=== PATIENT | female | born 1940 | race Caucasian/White ===

== ENCOUNTER 2022-06-16 08:58 | Observation (INO) | payer OTHER, SELFPAY ==
[2022-06-16] VITALS (12 sets, daily range): BP systolic 137–216; BP diastolic 68–102; PULSE 54–67; RESP 16–20; TEMP 36.6–36.8; O2SAT 93–99; BMI 22.8; BMI 20.8
--- NOTE | 2022-06-16 09:13 | ED.DIZZY ---
HPI - Dizziness General Time Seen by Provider: 09:24 Date Seen: 06/16/22 Chief Complaint: Dizziness/Vertigo Stated Complaint: Weakness, fluctuating blood pressure Time Seen by Provider: 06/16/22 09:03 Source: patient ( patient is able to tell me she is having no pain right now but has limitations due to her dementia), family ( her sister is present) and RN notes reviewed Mode of arrival: ambulatory Limitations: other ( dementia in the patient) History of Present Illness HPI Narrative: this 81-year-old female who is brought in accompanied by her sister with concern of increasing weakness, unsteadiness. Patient lives [facility] and has a medication set up once a week. Those are only services. Michelle reportedly fell in the bathroom this morning. She states she hit the back of her head but her sister states she complains more of her neck twisting in her left shoulder hurting after this. Right now Michelle states nothing hurts. Her sister notes this morning she seems more weak, disoriented, disorientation is more than her baseline. She had nifedipine started yesterday for better control of her blood pressure. Her sister notes that her pulses lower this morning. She is not had fevers or had any symptoms of being sick. Her sister feels that there has been increasing decline in her abilities to be by herself and does not feel that she can stay alone at this time. Michelle states she is just waiting when you ask if there is any issues right now. She is not feeling dizzy or lightheaded at this time, those complaints are translated by her sister. This patient does have baseline dementia and does have some disorientation per her sister but seems to be worse today. MD elicited complaint: other ( Denies any complaints to me at this time) Onset (ago): hour(s) Related Data Home Medications Medication Instructions Recorded Confirmed benztropine 0.5 mg tablet mg 06/16/22 bupropion HCl 300 mg 24 hr tablet, 300 mg PO DAILY 06/16/22 06/16/22 extended release (Wellbutrin XL) clonazepam 0.5 mg tablet 0.5 mg PO DAILY 06/16/22 06/16/22 lamotrigine 200 mg tablet mg 06/16/22 levothyroxine 50 mcg tablet mcg 06/16/22 losartan 25 mg tablet mg 06/16/22 loxapine succinate 5 mg capsule mg 06/16/22 meclizine 25 mg capsule mg PO 06/16/22 nifedipine 30 mg tablet,extended mg PO 06/16/22 release 24 hr sennosides 8.6 mg-docusate sodium PO 06/16/22 50 mg tablet (Stimulant Laxative Plus) simvastatin 40 mg tablet mg 06/16/22 Allergies Allergy/AdvReac Type Severity Reaction Status Date / Time No Known Drug Allergies Allergy Verified 06/16/22 09:07 Review of Systems Narrative: Patient is basically stating in that there is no pain or issues with anything I ask her. Given her dementia I do not believe I can get a meaningful review of systems from her. Her sister's provided most of the history as noted above in the HPI. [facility] Medical History (Updated 06/16/22 @ 12:25 by Neisha Kothari MD) Alzheimer's dementia without behavioral disturbance Bipolar disorder Chronic kidney disease GERD (gastroesophageal reflux disease) Hyperlipidemia Hypertension Hypothyroidism Osteoporosis Pelvic fracture Primary hyperparathyroidism Renal cell carcinoma of left kidney Type 2 diabetes mellitus Surgical History (Updated 06/16/22 @ 09:17 by Neisha Kothari MD) History of hysterectomy History of nephrectomy, left History of tonsillectomy Social History Smoking Status: Never smoker Do you use any of these nicotine containing products: None Second hand tobacco smoke exposure: No How often do you have a drink containing alcohol: never How often do you have six or more drinks on one occasion: Never AUDIT-C Alcohol total score: 0 Non-prescribed substance use: denies use service: No Exam Const: Vital Signs, click to edit/add: Vital Signs - 24 hr 06/16/22 09:07 06/16/22 09:30 Temperature 97.8 F Pulse Rate [Left P ulse Oximeter] 67 54 L Respiratory Rate 18 16 Blood Pressure [Le ft Upper Arm] 169/87 H 144/74 H Pulse Oximetry 95 94 Documenting provider has reviewed patient's vital signs: yes Common normals: no apparent distress and alert General appearance: cooperative, comfortable and disheveled Nutritional appearance: thin Orientation/consciousness: Yes awake HENMT: Common normals: normocephalic, head/scalp atraumatic, hearing grossly normal bilaterally, external ears normal, external nose normal, oropharynx normal and dentition normal ( does have dentures) Head and scalp: normocephalic and atraumatic Nose: external nose normal External ear: external ears normal Mouth: other ( no traumatic changes but dry mucosa) Eye: Common normals: PERRL, EOMs intact bilaterally, conjunctivae normal and no scleral icterus General eye: normal appearance of both eyes Conjunctiva: conjunctiva(e) normal Pupil: PERRL Other: face atraumatic Neck & C-Spine: Common normals: full ROM, supple, no JVD and thyroid normal Thyroid: thyroid normal Cervical spine: cervical ROM normal and other Cardio: Common normals: no JVD, regular rate, regular rhythm, S1 normal heart sound, S2 normal heart sound, no gallops and no clicks Rate: regular rate Rhythm: regular rhythm Heart sounds: S1 normal and S2 normal GI: Common normals: Normal to inspection, nondistended, normoactive bowel sounds present, soft to palpation, non-tender, no hepatosplenomegaly and no masses Palpation: soft and no hepatosplenomegaly Extremity: Common normals: normal to inspection, full ROM, normal capillary refill, no joint enlargement, no clubbing, cyanosis or edema, no calf tenderness and no pedal edema Neuro: Sensorium/orientation: awake and alert Other: this arms symmetrically, no arm drift, no tremor. Lifts legs independently off the bed. States she has normal sensation. Skin: Common normals: no rashes or lesions noted and no wounds General skin exam: no rashes or lesions noted Course Course Hospital Course: We will obtain head CT, cervical spine CT as well as left shoulder imaging given her sister's presenting history. She has recently had a UTI and was seen in April for this and treated Keflex for pansensitive E coli UTI. Will also get a portable chest x-ray given that this could be atypical presentation of pneumonia in an elderly patient. There is a possible traumatic issue here and thus the CTs will be done. Infectious etiology could be at play here including UTI or possibly COVID and will test for that. It is possible that this is worsening status due to addition of the nifedipine but based on her sister it really does seem like there has been some decline recently. patient may need increased cares and will need to consider that in our disposition. Reevaluation(s) Reevaluation #1: Patient will be admitted to the hospital, likely observation per Dr. Hua. She has been hemodynamically stable, was able to urinate in we did not have to do a straight cath. Her urine on the urinalysis definitely looks like she has an infection and will just treat for UTI. I have ordered 1 g IV Rocephin. Her white count remains similarly elevated [place] [address] an absolute neutrophil count of 13,510. We have ordered a 2nd troponin just to ensure that her troponin is not escalating. It is likely her troponin is up due to her kidney disease. Nonetheless, even if her troponin was starting to rise, her level of dementia really precludes her from being in active candidate for angiography. I have discussed with her sister and she is DNR DNI. She may need assistance from our social media executive to look for placement beyond her current state. Time: 12:14 Vital Signs Vital signs: Initial Vital Signs Temperature 97.8 F 06/16/22 09:07 Temperature Source Temporal Artery Scan 06/16/22 09:07 Pulse Rate 67 06/16/22 09:07 Respiratory Rate 18 06/16/22 09:07 Blood Pressure 169/87 H 06/16/22 09:07 Blood Pressure Mean 114 06/16/22 09:07 Blood Pressure Position Sitting 06/16/22 09:07 Pulse Oximetry 95 06/16/22 09:07 Oxygen Delivery Method 06/16/22 09:07 Vital Signs Temperature 97.8 F 06/16/22 09:07 Pulse Rate 67 06/16/22 09:07 Respiratory Rate 18 06/16/22 09:07 Blood Pressure 169/87 H 06/16/22 09:07 Pulse Oximetry 95 06/16/22 09:07 Temperature 97.8 F 06/16/22 09:07 Pulse Rate 54 L 06/16/22 09:30 Respiratory Rate 16 06/16/22 09:30 Blood Pressure 144/74 H 06/16/22 09:30 Pulse Oximetry 94 06/16/22 09:30 MDM - Dizziness Lab Data Attestation: I reviewed the patient's lab results. Labs: Lab Results 06/16/22 06/16/22 06/16/22 Range/Units 09:53 09:53 09:53 WBC 14.79 H (4.50-11.00) K/uL RBC 4.13 (4.00-5.20) m/uL Hgb 13.0 (12.0-16.0) gm/dL Hct 40.1 (33.0-51.0) % MCV 97 (80-100) fL MCH 32 (26-34) pg MCHC 32 (32-36) gm/dL RDW Coeff of Evelyn 13.5 (11.5-15.5) % Plt Count 224 (140-440) K/uL Neut % (Auto) 84.0 H (42.0-72.0) % Lymph % (Auto) 3.8 L (20-44) % [place] % (Auto) 11.7 H (0.0-11.0) % Eos % (Auto) 0.1 (0.0-7.0) % Baso % (Auto) 0.2 (0.0-3.0) % Neut # (Auto) 12.40 H (1.7-7.0) K/uL Lymph # (Auto) 0.60 L (0.90-2.90) K/uL [place] # (Auto) 1.70 H (0.00-0.90) K/UL Eos # (Auto) 0.00 (0.00-0.50) K/uL Baso # (Auto) 0.00 (0.00-0.30) K/uL Abs Immat Gran (auto) 0.03 (0.00-0.30) K/uL Sodium 138 (135-149) mmol/L Potassium 4.1 (3.6-5.1) mmol/L Chloride 102 (96-114) mmol/L Carbon Dioxide 24 (20-32) mmol/L BUN 45 H (7-30) mg/dL Creatinine 2.4 H (0.5-1.5) mg/dL Estimated Creat Clear 16.14 Estimated GFR 20 ml/min Glucose 125 H (60-115) mg/dL Lactate 0.9 (0.5-1.9) mmol/L Calcium 8.7 (8.4-10.6) mg/dL Total Bilirubin 0.7 (0.1-1.5) mg/dL AST 24 (12-35) U/L ALT 16 (4-35) U/L Alkaline Phosphatase 92 (40-150) U/L Troponin I (0.01-0.04) ng/mL Total Protein 7.3 (6.0-8.3) g/dL Albumin 4.0 (3.3-5.0) g/dL Urine Color (Yellow) Urine Appearance (Clear) Urine pH (5.0-8.5) Ur Specific [place] (1.000-1.030) Urine Protein (Negative) Urine Glucose (UA) (Negative) Urine Ketones (Negative) Urine Blood (Negative) Urine Nitrite (Negative) Urine Bilirubin (Negative) Urine Urobilinogen (0.2-1.0) Ur Leukocyte Esterase (Negative) Urine RBC (0-2) Urine WBC (0-5) Ur Squamous Epith Cells (None-Few) Urine Bacteria (None) SARS-CoV-2 (PCR) (Negative) 06/16/22 06/16/22 06/16/22 Range/Units 09:53 09:53 11:10 WBC (4.50-11.00) K/uL RBC (4.00-5.20) m/uL Hgb (12.0-16.0) gm/dL Hct (33.0-51.0) % MCV (80-100) fL MCH (26-34) pg MCHC (32-36) gm/dL RDW Coeff of Evelyn (11.5-15.5) % Plt Count (140-440) K/uL Neut % (Auto) (42.0-72.0) % Lymph % (Auto) (20-44) % [place] % (Auto) (0.0-11.0) % Eos % (Auto) (0.0-7.0) % Baso % (Auto) (0.0-3.0) % Neut # (Auto) (1.7-7.0) K/uL Lymph # (Auto) (0.90-2.90) K/uL [place] # (Auto) (0.00-0.90) K/UL Eos # (Auto) (0.00-0.50) K/uL Baso # (Auto) (0.00-0.30) K/uL Abs Immat Gran (auto) (0.00-0.30) K/uL Sodium (135-149) mmol/L Potassium (3.6-5.1) mmol/L Chloride (96-114) mmol/L Carbon Dioxide (20-32) mmol/L BUN (7-30) mg/dL Creatinine (0.5-1.5) mg/dL Estimated Creat Clear Estimated GFR ml/min Glucose (60-115) mg/dL Lactate (0.5-1.9) mmol/L Calcium (8.4-10.6) mg/dL Total Bilirubin (0.1-1.5) mg/dL AST (12-35) U/L ALT (4-35) U/L Alkaline Phosphatase (40-150) U/L Troponin I 0.08 H* (0.01-0.04) ng/mL Total Protein (6.0-8.3) g/dL Albumin (3.3-5.0) g/dL Urine Color Yellow (Yellow) Urine Appearance Cloudy A (Clear) Urine pH 7.0 (5.0-8.5) Ur Specific [place] 1.015 (1.000-1.030) Urine Protein 2+ A (Negative) Urine Glucose (UA) Negative (Negative) Urine Ketones Negative (Negative) Urine Blood 2+ A (Negative) Urine Nitrite Positive A (Negative) Urine Bilirubin Negative (Negative) Urine Urobilinogen 0.2 (0.2-1.0) Ur Leukocyte Esterase 3+ A (Negative) Urine RBC 5-10 A (0-2) Urine WBC >100 A (0-5) Ur Squamous Epith Cells None (None-Few) Urine Bacteria Many A (None) SARS-CoV-2 (PCR) Negative SARS-CoV-2 (Negative) Imaging Data CT- Other: Attestation: I have reviewed the pertinent imaging results. Radiologist's impression: Patient: MICHELLE ENNIS Facility:?[facility] Patient ID:?[id number] Site Patient ID:?[id number]. Site :?1940 Study:?CT Spine Cervical -06/16/2022 10:21:46 AM Ordering Physician:Ousmane Driver Final Report: INDICATION: Trauma. TECHNIQUE: CT cervical spine without contrast. COMPARISON: None. FINDINGS: Vertebrae: Alignment is normal. There are no fractures or suspicious bony lesions. Stepwise grade 1 anterolisthesis of C3 through C6. Discs and facet joints: There are advanced degenerative changes in the disc spaces and facet joints. Osseous fusion of the posterior elements at C2-C3. Extraspinal findings: Paraspinous soft tissues are unremarkable. Multilevel moderate to advanced osseous neural foraminal stenosis, for example most notably severe bilaterally at C3-C4, left C5-C6. IMPRESSION: 1. No evidence of acute cervical spine fracture. 2. Advanced degenerative spondylosis. Please note that all CT scans at this facility use dose modulation, iterative reconstruction, and/or weight-based dosing when appropriate to reduce radiation dose to as low as reasonably achievable. Dictated by Romain Mayfield MD @ 06/16/2022 10:43:02 AM (Electronic Signature) CT scan - head: Attestation: I have reviewed the pertinent imaging results. Radiologist's impression: Patient: MICHELLE [facility] Facility:?[facility] Patient ID:?[id number] Site Patient ID:?[id number]. Site :?1940 Study:?CT Head w/o-06/16/2022 10:21:37 AM Ordering Physician:Ousmane Driver Final Report: INDICATION: FALL, VERTIGO, WEAKNESS TECHNIQUE: Head CT without contrast. COMPARISON: 06/28/2014 FINDINGS: CSF spaces: Within normal limits for age. Brain parenchyma and extra-axial spaces: Hypodensity within the left frontal lobe corresponds to beam hardening streak artifact. There are nonspecific low attenuation white matter changes consistent with chronic microvascular disease. No intraparenchymal hemorrhage or extra-axial fluid collection. Skull base and calvarium: The visualized paranasal sinuses and mastoid air cells demonstrate no acute or significant findings. The visualized orbits are grossly unremarkable. No skull fractures. IMPRESSION: Chronic changes without evidence of acute intracranial abnormality. Please note that all CT scans at this facility use dose modulation, iterative reconstruction, and/or weight-based dosing when appropriate to reduce radiation dose to as low as reasonably achievable. Dictated by Romain Mayfield MD @ 06/16/2022 10:48:19 AM (Electronic Signature) X-ray left shoulder: Attestation: I have reviewed the pertinent imaging results. Radiologist's impression: Patient: [facility] Facility:?[facility] Patient ID:?[id number] Site Patient ID:?[id number]. Site :?1940 Study:?CT Head w/o-06/16/2022 10:21:37 AM Ordering Physician:Ousmane Driver Final Report: INDICATION: FALL, VERTIGO, WEAKNESS TECHNIQUE: Head CT without contrast. COMPARISON: 06/28/2014 FINDINGS: CSF spaces: Within normal limits for age. Brain parenchyma and extra-axial spaces: Hypodensity within the left frontal lobe corresponds to beam hardening streak artifact. There are nonspecific low attenuation white matter changes consistent with chronic microvascular disease. No intraparenchymal hemorrhage or extra-axial fluid collection. Skull base and calvarium: The visualized paranasal sinuses and mastoid air cells demonstrate no acute or significant findings. The visualized orbits are grossly unremarkable. No skull fractures. IMPRESSION: Chronic changes without evidence of acute intracranial abnormality. Please note that all CT scans at this facility use dose modulation, iterative reconstruction, and/or weight-based dosing when appropriate to reduce radiation dose to as low as reasonably achievable. Dictated by Romain Mayfield MD @ 06/16/2022 10:48:19 AM (Electronic Signature) Chest x-ray: Attestation: I have reviewed the pertinent imaging results. Radiologist's impression: Patient: MICHELLE ENNIS Facility:?[facility] Patient ID:?[id number] Site Patient ID:?[id number]. Site :?1940 Study:?XRay Chest 1 VIEW-06/16/2022 10:36:37 AM Ordering Physician:?Taye Driver Final Report: INDICATION: Weakness COMPARISON: February 02, 2017 TECHNIQUE: A single view chest radiograph was acquired FINDINGS: TUBES AND LINES: None. HEART AND MEDIASTINUM: Heart mildly enlarged. Tortuous and probably dilated thoracic aorta. The plain film appearance is similar to 2017. LUNGS AND PLEURAL SPACES: Hyperinflated but otherwise unremarkable appearing lungs without acute focal finding.The pleural spaces are unremarkable. OSSEOUS STRUCTURES: Demineralization and degenerative change IMPRESSION: Hyperinflated but otherwise unremarkable appearing lungs without acute focal finding. Enlarged heart. Tortuous and probably dilated thoracic aorta. Similar appearance to the 2017 examination. Dictated by Evan Maria MD @ 06/16/2022 10:58:47 AM (Electronic Signature) ECG Data Attestation: I personally reviewed and interpreted this ECG as follows: (Sinus rhythm, [address] flat depression inferiorly.) ECG interpretation date: 06/16/22 ECG interpretation time: 10:35 Prior ECG tracings: available for review (Changes not seen on prior EKG) Critical Care Time Critical Care Time Critical Care Time: No Discharge Plan Discharge Clinical Impression: Dementia, Weakness, Acute UTI Patient Disposition: Admitted As Inpatient Condition: Stable Prescriptions: No Action nifedipine 30 mg tablet extended release 24 hr PO 0RF benztropine 0.5 mg tablet 0RF lamotrigine 200 mg tablet 0RF sennosides-docusate sodium [Stimulant Laxative Plus] 8.6-50 mg tablet PO 0RF simvastatin 40 mg tablet 0RF loxapine succinate 5 mg capsule 0RF bupropion HCl [Wellbutrin XL] 300 mg tablet extended release 24 hr 300 mg PO DAILY 0RF levothyroxine 50 mcg tablet 0RF losartan 25 mg tablet 0RF clonazepam 0.5 mg tablet 0.5 mg PO DAILY 0RF meclizine 25 mg capsule PO 0RF Follow Up/Referrals: Rajni Lozano DO [Primary Care Provider] -
--- NOTE | 2022-06-16 09:33 | CRLHL7_ITS ---
For Patients: As a result of the Century Cures Act, medical imaging exams and procedure reports are released immediately into your electronic medical record. You may view this report before your referring provider. If you have questions, please contact your health care provider. INDICATION: FALL, VERTIGO, WEAKNESS TECHNIQUE: Head CT without contrast. COMPARISON: 06/28/2014 FINDINGS: CSF spaces: Within normal limits for age. Brain parenchyma and extra-axial spaces: Hypodensity within the left frontal lobe corresponds to beam hardening streak artifact. There are nonspecific low attenuation white matter changes consistent with chronic microvascular disease. No intraparenchymal hemorrhage or extra-axial fluid collection. Skull base and calvarium: The visualized paranasal sinuses and mastoid air cells demonstrate no acute or significant findings. The visualized orbits are grossly unremarkable. No skull fractures. IMPRESSION: Chronic changes without evidence of acute intracranial abnormality. Please note that all CT scans at this facility use dose modulation, iterative reconstruction, and/or weight-based dosing when appropriate to reduce radiation dose to as low as reasonably achievable. Dictated by Romain Mayfield MD @ 06/16/2022 10:48:19 AM (Electronically Signed)
--- NOTE | 2022-06-16 09:36 | CRLHL7_ITS ---
For Patients: As a result of the Century Cures Act, medical imaging exams and procedure reports are released immediately into your electronic medical record. You may view this report before your referring provider. If you have questions, please contact your health care provider. INDICATION: Trauma. TECHNIQUE: CT cervical spine without contrast. COMPARISON: None. FINDINGS: Vertebrae: Alignment is normal. There are no fractures or suspicious bony lesions. Stepwise grade 1 anterolisthesis of C3 through C6. Discs and facet joints: There are advanced degenerative changes in the disc spaces and facet joints. Osseous fusion of the posterior elements at C2-C3. Extraspinal findings: Paraspinous soft tissues are unremarkable. Multilevel moderate to advanced osseous neural foraminal stenosis, for example most notably severe bilaterally at C3-C4, left C5-C6. IMPRESSION: 1. No evidence of acute cervical spine fracture. 2. Advanced degenerative spondylosis. Please note that all CT scans at this facility use dose modulation, iterative reconstruction, and/or weight-based dosing when appropriate to reduce radiation dose to as low as reasonably achievable. Dictated by Romain Mayfield MD @ 06/16/2022 10:43:02 AM (Electronically Signed)
--- NOTE | 2022-06-16 09:36 | CRLHL7_ITS ---
For Patients: As a result of the Century Cures Act, medical imaging exams and procedure reports are released immediately into your electronic medical record. You may view this report before your referring provider. If you have questions, please contact your health care provider. INDICATION: Weakness COMPARISON: February 02, 2017 TECHNIQUE: A single view chest radiograph was acquired FINDINGS: TUBES AND LINES: None. HEART AND MEDIASTINUM: Heart mildly enlarged. Tortuous and probably dilated thoracic aorta. The plain film appearance is similar to 2017. LUNGS AND PLEURAL SPACES: Hyperinflated but otherwise unremarkable appearing lungs without acute focal finding.The pleural spaces are unremarkable. OSSEOUS STRUCTURES: Demineralization and degenerative change IMPRESSION: Hyperinflated but otherwise unremarkable appearing lungs without acute focal finding. Enlarged heart. Tortuous and probably dilated thoracic aorta. Similar appearance to the 2017 examination. Dictated by Evan Maria MD @ 06/16/2022 10:58:47 AM (Electronically Signed)
--- NOTE | 2022-06-16 09:36 | CRLHL7_ITS ---
For Patients: As a result of the Cures Act, medical imaging exams and procedure reports are released immediately into your electronic medical record. You may view this report before your referring provider. If you have questions, please contact your health care provider. Indication: Trauma Technique: None Comparison: Two views of the left shoulder were acquired Findings: Demineralization. No significant arthritic process identified. No visible fracture or dislocation or destructive process. Incidental degenerative changes of the spine and tortuous thoracic aorta. Impression: No visible acute posttraumatic findings involving the left shoulder. Dictated by Evan Maria MD @ 06/16/2022 10:55:34 AM (Electronically Signed)
[2022-06-16 09:59] LABS: Basophils Percent Auto 0.2 % (0.0-3.0); Eosinophils Percent Auto 0.1 % (0.0-7.0); Hematocrit 40.1 % (33.0-51.0); Immature Granulocytes Abs Auto 0.03 K/uL (0.00-0.30); Lymphocytes Percent Auto 3.8 % (20-44); Mean Corpuscular HGB Conc 32 gm/dL (32-36); Mean Corpuscular Hemoglobin 32 pg (26-34); Mean Corpuscular Volume 97 fL (80-100); Monocytes Percent Auto 11.7 % (0.0-11.0); Platelet Count* 224 K/uL (140-440); RDW Coefficient of Variation % 13.5 % (11.5-15.5); Red Blood Count 4.13 m/uL (4.00-5.20); White Blood Count* 14.79 K/uL (4.50-11.00)
[2022-06-16 10:00] LABS: Slide Review Reflex No
[2022-06-16 10:05] LABS: Lactate* 0.9 mmol/L (0.5-1.9)
[2022-06-16 10:47] LABS: Troponin I* 0.08 ng/mL (0.01-0.04)
--- NOTE | 2022-06-16 10:51 | ED.NURSE ---
Critical lab - trop 0.08. Results given to
[2022-06-16 11:14] LABS: SARS PCR* Negative SARS-CoV-2 (Negative)
[2022-06-16 11:16] LABS: Chloride* 102 mmol/L (96-114); Sodium* 138 mmol/L (135-149)
[2022-06-16 11:17] LABS: Potassium* 4.1 mmol/L (3.6-5.1)
[2022-06-16 11:19] LABS: Alkaline Phosphatase* 92 U/L (40-150); Aspartate Amino Transferase* 24 U/L (12-35); Bilirubin Total* 0.7 mg/dL (0.1-1.5); Blood Urea Nitrogen* 45 mg/dL (7-30); Carbon Dioxide* 24 mmol/L (20-32); Creatinine* 2.4 mg/dL (0.5-1.5); Est. Creatinine Clearance* 16.14; Estimated Glomerular Filt Rate 20 ml/min; Total Protein* 7.3 g/dL (6.0-8.3)
[2022-06-16 11:20] LABS: Alanine Aminotransferase* 16 U/L (4-35); Calcium* 8.7 mg/dL (8.4-10.6); Glucose* 125 mg/dL (60-115)
[2022-06-16 11:28] LABS: Appearance Urine Cloudy (Clear); Bilirubin Urine Negative (Negative); Blood Urine 2+ (Negative); Color Urine Yellow (Yellow); Glucose Urine Negative (Negative); Ketones Urine Negative (Negative); Leukocyte Esterase Urine 3+ (Negative); Nitrite Urine Positive (Negative); Protein Urine 2+ (Negative); Specific Gravity Urine 1.015 (1.000-1.030); Urobilinogen Urine 0.2 (0.2-1.0)
[2022-06-16 11:55] LABS: Bacteria Urine Many; WBC Urine >100 (0-5)
[2022-06-16 12:59] LABS: Troponin I* 0.08 ng/mL (0.01-0.04)
[2022-06-16] MEDS: cefTRIAXone 1 GM in 0.9 % SODIUM CHLORIDE Mini-bag 100 ML IVPB (13:03)
--- NOTE | 2022-06-16 13:06 | W.PC.EDHO ---
Primary Language: Malay Preferred Language: Orientation Status: [] Alert & Oriented [] Slight Confusion [X] Known Dx Dementia Transfers By: [X] Assist of 1 [] Assist of 2 [] Lift Active Medications Discontinued Medications Generic Name Dose Route Start Last Admin Trade Name Freq PRN Reason Stop Dose Admin Ceftriaxone Sodium 1 gm/ 100 mls @ 200 mls/hr 06/16/22 12:10 06/16/22 13:03 Sodium Chloride IVPB 06/16/22 12:11 200 mls/hr ONCE ONE Administration Description of Symptoms ED Triage Present Problem per sister, pt was seen at her PMD 2 days ago and Description meds were adjusted for blood pressure. today pt c/o dizziness, low pulse and high BP. pt c/o being tired. Female History Patient No [place] Coma Scale [place] coma scale total score 15 Pain Pain Scale Used Numeric (1 - 10) Pain Scale Used Numeric (1 - 10) Oxygen Administration Pulse Oximetry 94 Pulse Oximetry 95 Oxygen Delivery Method Room Air Oxygen Delivery Method Room Air Cardiac Monitoring EKG Method 12 Lead
--- NOTE | 2022-06-16 13:07 | P.IMHP_ITS ---
Hospitalist- H&P: HPI History of Present Illness Time Seen by Provider: 13:07 Date Seen: 06/16/22 Chief complaint: Weakness, fluctuating blood pressure Narrative: Michelle Markham is a 81 year old female who has been having increased confusion and her apartment at the [facility] in [place]. She has fall in but is not significantly injured. Workup in the emergency room has been unremarkable with the exception of UTI. Patient has underlying cognitive issues which have worsened. Patient's blood pressure is elevated as well. There has been some changes to her blood pressure regiment which is poorly defined at this point. Currently is unclear whether the patient is in the appropriate living environment for her. She has a sister and brother who are excellent caregivers but do not live with her. Review of Systems Status of ROS: Reports: 10 or more systems reviewed and unremarkable except as noted in History and below [facility] Medical History (Updated 06/16/22 @ 12:25 by Neisha Kothari MD) Alzheimer's dementia without behavioral disturbance Bipolar disorder Chronic kidney disease GERD (gastroesophageal reflux disease) Hyperlipidemia Hypertension Hypothyroidism Osteoporosis Pelvic fracture Primary hyperparathyroidism Renal cell carcinoma of left kidney Type 2 diabetes mellitus Surgical History (Updated 06/16/22 @ 09:17 by Neisha Kothari MD) History of hysterectomy History of nephrectomy, left History of tonsillectomy Social History Smoking Status: Never smoker Do you use any of these nicotine containing products: None Second hand tobacco smoke exposure: No How often do you have a drink containing alcohol: never How often do you have six or more drinks on one occasion: Never AUDIT-C Alcohol total score: 0 Non-prescribed substance use: denies use service: No Meds Home Medications and Allergies Home Medications Medication Instructions Recorded Confirmed Type benztropine 0.5 mg tablet mg 06/16/22 History bupropion HCl 300 mg 24 hr tablet, 300 mg PO DAILY 06/16/22 06/16/22 History extended release (Wellbutrin XL) clonazepam 0.5 mg tablet 0.5 mg PO DAILY 06/16/22 06/16/22 History lamotrigine 200 mg tablet mg 06/16/22 History levothyroxine 50 mcg tablet mcg 06/16/22 History losartan 25 mg tablet mg 06/16/22 History loxapine succinate 5 mg capsule mg 06/16/22 History meclizine 25 mg capsule mg PO 06/16/22 History nifedipine 30 mg tablet,extended mg PO 06/16/22 History release 24 hr sennosides 8.6 mg-docusate sodium PO 06/16/22 History 50 mg tablet (Stimulant Laxative Plus) simvastatin 40 mg tablet mg 06/16/22 History Allergies Allergy/AdvReac Type Severity Reaction Status Date / Time No Known Drug Allergies Allergy Verified 06/16/22 09:07 Exam Narrative: Exam Narrative: EXAM GENERAL: Patient appears comfortable and well. EYES: No scleral icterus. LYMPH: No supraclavicular or cervical lymphadenopathy. SKIN: Visible skin seen during exam normal or with benign process only. EXT: No dependent lower extremity pedal edema. HEART: Regular rate and rhythm with no murmurs, rubs, or gallops. LUNGS: Clear to auscultation bilaterally with no crackles or wheezes. ABD: Soft, non tender, non distended. PSYCH: Good eye contact, speech is not pressured. Const: Vital Signs, click to edit/add: Vital Signs - 24 hr 06/16/22 09:07 06/16/22 09:30 Temperature 97.8 F Pulse Rate [Left P ulse Oximeter] 67 54 L Respiratory Rate 18 16 Blood Pressure [Le ft Upper Arm] 169/87 H 144/74 H Pulse Oximetry 95 94 Hospitalist - H&P: Result Labs Labs: Short CBC 06/16/22 Range/Units 09:53 WBC 14.79 H (4.50-11.00) K/uL Hgb 13.0 (12.0-16.0) gm/dL Hct 40.1 (33.0-51.0) % Plt Count 224 (140-440) K/uL BMP 06/16/22 09:53 Sodium 138 Potassium 4.1 Chloride 102 Carbon Dioxide 24 BUN 45 H Creatinine 2.4 H Glucose 125 H Calcium 8.7 Cardiac Enzymes 06/16/22 06/16/22 Range/Units 09:53 12:08 Troponin I 0.08 H* 0.08 H* (0.01-0.04) ng/mL Liver Function 06/16/22 Range/Units 09:53 Total Bilirubin 0.7 (0.1-1.5) mg/dL AST 24 (12-35) U/L ALT 16 (4-35) U/L Alkaline Phosphatase 92 (40-150) U/L Albumin 4.0 (3.3-5.0) g/dL Urine 06/16/22 Range/Units 11:10 Urine Color Yellow (Yellow) Urine Appearance Cloudy A (Clear) Urine pH 7.0 (5.0-8.5) Ur Specific [place] 1.015 (1.000-1.030) Urine Protein 2+ A (Negative) Urine Glucose (UA) Negative (Negative) Assessment and Plan Assessment and plan (1) Dementia: Status: Acute Assessment and Plan: I am not certain if the patient is in her appropriate living environment. Will be treating her urinary tract infection having PT OT consult as well as social insurance adviser. We will review her home medications as well. (2) Weakness: Status: Acute Assessment and Plan: Likely a function of her urinary tract infection underlying dementia. Will treat her UTI and have social insurance analyst help with disposition as well as PT and OT. (3) Acute UTI: Status: Acute Plan Patient received IV Rocephin which we will continue in the short term.
[2022-06-16] MEDS: cloNIDine HCL 0.1 MG TABLET 0.2 MG PO (14:49)
[2022-06-16] MEDS: SENNOSIDES/DOCUSATE TABLET 2 TAB PO (20:39)
[2022-06-16] MEDS: SIMVASTATIN 40 MG TABLET PO (20:40)
[2022-06-16] MEDS: lamoTRIgine 100 MG TABLET 200 MG PO (21:01)
--- NOTE | 2022-06-16 23:39 | PC.NURSE ---
Shift Note [id number]: Pt anxious in hospital setting. Sister Facundo at bedside most of the evening, family presence appears to help pt uneasiness. Receptive to reassurance and explaining cares. Denies pain, but does c/o neck stiffness. Supporting head with pillows has been effective to manage discomfort. Moves well with assist x1, pt does move somewhat impulsively. BP's slightly hypertensive, other VS WNL and LS COA. Pt does have urge incontinence, urine is cloudy and light gurdeep with strong odor. Hot Worker assisted pt with donald care and changed to clean brief at HS.
[2022-06-17 00:43] VITALS: PULSE 61
[2022-06-17 03:44] VITALS: RESP 16
--- NOTE | 2022-06-17 06:26 | PC.NURSE ---
NURSE NOTE 23-: Pt slept throughout night, OK per MD to let pt sleep and do restful night VS. Pt appeared comfortable. Uneventful night.
[2022-06-17 06:52] LABS: Basophils Percent Auto 0.5 % (0.0-3.0); Eosinophils Percent Auto 1.1 % (0.0-7.0); Hematocrit 37.6 % (33.0-51.0); Hemoglobin* 12.3 gm/dL (12.0-16.0); Immature Granulocytes Abs Auto 0.02 K/uL (0.00-0.30); Lymphocytes Percent Auto 6.2 % (20-44); Mean Corpuscular HGB Conc 33 gm/dL (32-36); Mean Corpuscular Hemoglobin 32 pg (26-34); Mean Corpuscular Volume 97 fL (80-100); Monocytes Percent Auto 12.2 % (0.0-11.0); Neutrophils Percent Auto 79.8 % (42.0-72.0); Platelet Count* 213 K/uL (140-440); RDW Coefficient of Variation % 13.4 % (11.5-15.5); Red Blood Count 3.89 m/uL (4.00-5.20); White Blood Count* 11.11 K/uL (4.50-11.00)
[2022-06-17 06:55] LABS: Slide Review Reflex No
[2022-06-17] MEDS: LEVOTHYROXINE 50 MCG TABLET PO (06:55)
[2022-06-17 07:00] VITALS: BP 147/70; PULSE 64; RESP 16; RESP 26; TEMP 37.1; O2SAT 94
[2022-06-17 07:03] LABS: Chloride* 105 mmol/L (96-114); Sodium* 137 mmol/L (135-149)
[2022-06-17 07:04] LABS: Potassium* 4.2 mmol/L (3.6-5.1)
[2022-06-17 07:06] LABS: Carbon Dioxide* 26 mmol/L (20-32); Creatinine* 2.2 mg/dL (0.5-1.5); Est. Creatinine Clearance* 17.61; Estimated Glomerular Filt Rate 22 ml/min
[2022-06-17 07:07] LABS: Blood Urea Nitrogen* 44 mg/dL (7-30); Calcium* 8.3 mg/dL (8.4-10.6); Glucose* 104 mg/dL (60-115)
[2022-06-17 07:21] LABS: Troponin I* 0.06 ng/mL (0.01-0.04)
[2022-06-17] MEDS: SENNOSIDES/DOCUSATE TABLET 2 TAB PO (08:44)
[2022-06-17] MEDS: buPROPion XL 150 MG TABLET 300 MG PO (08:45)
[2022-06-17] MEDS: LOSARTAN POTASSIUM 50 MG TABLET 12.5 MG PO (08:45)
[2022-06-17] MEDS: lamoTRIgine 100 MG TABLET 200 MG PO (09:09)
--- NOTE | 2022-06-17 09:21 | PM.DS1 ---
DS: Providers Provider Time Seen by Provider: : Date Seen: 06/17/22 Date of admission: 06/16/22 13:53 Primary care physician: Rajni Lozano DO Admitting Clinician: Valentin Hua MD Consults: 06/16/22 13:28 Consult to Occupational Therapy [CONS] Urgent Comment: Reason(s) for OT Consult:: Difficulty Managing ADLs Any Restrictions?:: No Restrictions Consult to Office Runner [CONS] Urgent Comment: Reason for Consult:: Social Service Consult 06/16/22 13:29 Consult to Physical Therapy [CONS] Urgent Comment: Reason(s) for PT Consult:: Evaluate Ambulation Any Restrictions?:: No Restrictions 06/16/22 16:18 Consult to Occupational Therapy [CONS] Routine Comment: Reason(s) for OT Consult:: Difficulty Managing ADLs Any Restrictions?:: Unknown Consult to Physical Therapy [CONS] Routine Comment: Reason(s) for PT Consult:: Evaluate and Treat Any Restrictions?:: Unknown Attending Physician on discharge: Valentin Hua MD DS: Diagnosis Discharge Diagnosis (1) Dementia: Status: Acute (2) Weakness: Status: Acute (3) Acute UTI: Status: Acute DS: Summary Hospital Course Hospital Course: Patient is a 81-year-old woman with history of mental health issues and cognitive dysfunction who was admitted with urinary tract infection. She received IV Rocephin. Patient's mental status it remains poor which I do think is more than his explainable via her UTI. This time patient will be transferred to long-term care to continue PT OT as well as additional 5 days of ciprofloxacin 250 mg b.i.d.. She will be seen by PT and OT and will follow-up with her shelter facility physician. Status at Discharge Functional status at discharge: uses cane/walker Overall status at discharge: patient is not back to baseline Time Spent with Patient Time attestation: Total time spent providing and/or coordinating discharge services: Exam Narrative: Exam Narrative: EXAM GENERAL: Patient appears comfortable and well. EYES: No scleral icterus SKIN: Visible skin seen during exam normal or with benign process only. EXT: No dependent lower extremity pedal edema. HEART: Regular rate and rhythm with no murmurs, rubs, or gallops. LUNGS: Clear to auscultation bilaterally with no crackles or wheezes. ABD: Soft, non tender, non distended. PSYCH: Good eye contact, speech is not pressured. Const: Vital Signs, click to edit/add: Vital Signs - 24 hr 06/16/22 09:30 06/16/22 10:30 06/16/22 11:00 Temperature 97.8 F 97.8 F Pulse Rate Pulse Rate [Left A pical] Pulse Rate [Left P ulse Oximeter] 54 L 66 54 L Respiratory Rate 16 16 16 Blood Pressure [Le ft Arm] Blood Pressure [Le ft Upper Arm] 144/74 H 192/89 H 183/93 H Pulse Oximetry 94 99 98 06/16/22 12:00 06/16/22 13:00 06/16/22 13:30 Temperature 97.8 F Pulse Rate Pulse Rate [Left A pical] Pulse Rate [Left P ulse Oximeter] 66 66 66 Respiratory Rate 16 16 16 Blood Pressure [Le ft Arm] Blood Pressure [Le ft Upper Arm] 197/98 H 207/97 H 216/100 H Pulse Oximetry 99 99 99 06/16/22 14:29 06/16/22 15:00 06/16/22 16:13 Temperature 98.1 F 98 F Pulse Rate Pulse Rate [Left A pical] 67 Pulse Rate [Left P ulse Oximeter] Respiratory Rate 18 20 20 Blood Pressure [Le ft Arm] 197/102 H 137/68 Blood Pressure [Le ft Upper Arm] Pulse Oximetry 98 95 95 06/16/22 19:00 06/16/22 23:00 06/17/22 00:43 Temperature 98.2 F Pulse Rate 61 Pulse Rate [Left A pical] 62 Pulse Rate [Left P ulse Oximeter] Respiratory Rate 18 16 Blood Pressure [Le ft Arm] 145/74 H Blood Pressure [Le ft Upper Arm] Pulse Oximetry 93 06/17/22 03:44 Temperature Pulse Rate Pulse Rate [Left A pical] Pulse Rate [Left P ulse Oximeter] Respiratory Rate 16 Blood Pressure [Le ft Arm] Blood Pressure [Le ft Upper Arm] Pulse Oximetry DS: Data Data Completed and Pending Labs on day of discharge: Labs from last 24 hours 06/17/22 06/17/22 06/16/22 06:36 06:36 12:08 WBC 11.11 H RBC 3.89 L Hgb 12.3 Hct 37.6 MCV 97 MCH 32 MCHC 33 RDW Coeff of Evelyn 13.4 Plt Count 213 Neut % (Auto) 79.8 H Lymph % (Auto) 6.2 L [place] % (Auto) 12.2 H Eos % (Auto) 1.1 Baso % (Auto) 0.5 Neut # (Auto) 8.90 H Lymph # (Auto) 0.70 L [place] # (Auto) 1.40 H Eos # (Auto) 0.10 Baso # (Auto) 0.10 Abs Immat Gran (auto) 0.02 Sodium 137 Potassium 4.2 Chloride 105 Carbon Dioxide 26 BUN 44 H Creatinine 2.2 H Estimated Creat Clear 17.61 Estimated GFR 22 Glucose 104 Lactate Calcium 8.3 L Total Bilirubin AST ALT Alkaline Phosphatase Troponin I 0.06 H* 0.08 H* Total Protein Albumin Urine Color Urine Appearance Urine pH Ur Specific [place] Urine Protein Urine Glucose (UA) Urine Ketones Urine Blood Urine Nitrite Urine Bilirubin Urine Urobilinogen Ur Leukocyte Esterase Urine RBC Urine WBC Ur Squamous Epith Cells Urine Bacteria SARS-CoV-2 (PCR) 06/16/22 06/16/22 06/16/22 11:10 09:53 09:53 WBC RBC Hgb Hct MCV MCH MCHC RDW Coeff of Evelyn Plt Count Neut % (Auto) Lymph % (Auto) [place] % (Auto) Eos % (Auto) Baso % (Auto) Neut # (Auto) Lymph # (Auto) [place] # (Auto) Eos # (Auto) Baso # (Auto) Abs Immat Gran (auto) Sodium Potassium Chloride Carbon Dioxide BUN Creatinine Estimated Creat Clear Estimated GFR Glucose Lactate Calcium Total Bilirubin AST ALT Alkaline Phosphatase Troponin I 0.08 H* Total Protein Albumin Urine Color Yellow Urine Appearance Cloudy A Urine pH 7.0 Ur Specific [place] 1.015 Urine Protein 2+ A Urine Glucose (UA) Negative Urine Ketones Negative Urine Blood 2+ A Urine Nitrite Positive A Urine Bilirubin Negative Urine Urobilinogen 0.2 Ur Leukocyte Esterase 3+ A Urine RBC 5-10 A Urine WBC >100 A Ur Squamous Epith Cells None Urine Bacteria Many A SARS-CoV-2 (PCR) Negative SARS-CoV-2 06/16/22 06/16/22 06/16/22 09:53 09:53 09:53 WBC 14.79 H RBC 4.13 Hgb 13.0 Hct 40.1 MCV 97 MCH 32 MCHC 32 RDW Coeff of Evelyn 13.5 Plt Count 224 Neut % (Auto) 84.0 H Lymph % (Auto) 3.8 L [place] % (Auto) 11.7 H Eos % (Auto) 0.1 Baso % (Auto) 0.2 Neut # (Auto) 12.40 H Lymph # (Auto) 0.60 L [place] # (Auto) 1.70 H Eos # (Auto) 0.00 Baso # (Auto) 0.00 Abs Immat Gran (auto) 0.03 Sodium 138 Potassium 4.1 Chloride 102 Carbon Dioxide 24 BUN 45 H Creatinine 2.4 H Estimated Creat Clear 16.14 Estimated GFR 20 Glucose 125 H Lactate 0.9 Calcium 8.7 Total Bilirubin 0.7 AST 24 ALT 16 Alkaline Phosphatase 92 Troponin I Total Protein 7.3 Albumin 4.0 Urine Color Urine Appearance Urine pH Ur Specific [place] Urine Protein Urine Glucose (UA) Urine Ketones Urine Blood Urine Nitrite Urine Bilirubin Urine Urobilinogen Ur Leukocyte Esterase Urine RBC Urine WBC Ur Squamous Epith Cells Urine Bacteria SARS-CoV-2 (PCR) Discharge Plan Discharge Disposition: [facility] Date of Admission: 06/16/22 13:53 Attending Provider on Discharge: Valentin Hua Primary Care Provider: Rajni Lozano Condition: Stable Discharge Medications: New ciprofloxacin HCl [Cipro] 250 mg tablet 250 mg PO BID Qty: 10 0RF Continued benztropine 0.5 mg tablet 0.5 mg PO DAILY 0RF lamotrigine 200 mg tablet 200 mg PO Q12H 0RF sennosides-docusate sodium [Stimulant Laxative Plus] 8.6-50 mg tablet 2 tab-cap PO BID 0RF simvastatin 40 mg tablet 40 mg PO HS 0RF loxapine succinate 5 mg capsule 5 mg PO HS 0RF bupropion HCl [Wellbutrin XL] 300 mg tablet extended release 24 hr 300 mg PO DAILY 0RF levothyroxine 50 mcg tablet 50 mcg PO DAILY 0RF losartan 25 mg tablet 12.5 mg PO DAILY 0RF amlodipine 2.5 mg tablet 2.5 mg PO DAILY 0RF rosuvastatin 10 mg tablet 10 mg PO HS 0RF Hold Instructions: NOT ON [facility] LIST 06/16/22 cinacalcet 30 mg tablet 30 mg PO DAILY 0RF cholecalciferol (vitamin D3) 25 mcg (1,000 unit) tablet 1,000 unit PO DAILY 0RF multivitamin with folic acid [Tab-A-Alka] 400 mcg tablet 1 tab PO DAILY 0RF Discharge Orders: Discharge Order (Routine); Ordered 06/17/22 Ordered By: Valentin Hua Activity Level: No Restrictions Activity Detail: PT OT to see Discharge Diet: Regular Follow Up Appointments: Rajni Lozano DO [Primary Care Provider] -
--- NOTE | 2022-06-17 09:56 | PC.NURSE ---
Dr. Hua aware of Trop 0.06 as a decrease in the lab.
[2022-06-17 11:00] VITALS: BP 166/80; PULSE 63; RESP 26; TEMP 36.6; O2SAT 96
--- NOTE | 2022-06-17 11:23 | PC.SOCIAL ---
Discharge plan: Received call back from [facility] stating they can accept pt for admit to the [facility] at 1:00 today. Met with pt and sister, Facundo, who are aware and agree with this plan. color drum worker to follow up as needed.
[2022-06-17] MEDS: cefTRIAXone 1 GM in 0.9 % SODIUM CHLORIDE Mini-bag 100 ML IVPB (12:26)
--- NOTE | 2022-06-17 13:07 | PC.NURSE ---
Discharge: Patient pleasant and cooperative. Patient alert and oriented to only self. Patient vitally stable, lungs clear, BS WNL, IV removed, catheter intact. Patient denied pain. Patient is 1 assist, walker, gb when ambulating. Patient's Sister who is POA, signed belongings sheet and discharge form. Patient left the floor by wheelchair to [facility], through transportation provided from [facility] van, at [phone]. Patient's sister took belongings and will meeting patient at [facility].
== END 2022-06-17 13:02 ==
LOC: ED 12:25 → MEDSURG 13:56
PROVIDERS: Admitting Provider Internal Medicine; Emergency Provider Family Medicine; PCP Family Medicine; Visit Provider Internal Medicine
DX: N39.0 Urinary tract infection, site not specified (principal); F03.90 Unspecified dementia, unspecified severity, without behavioral disturbance, psychotic disturbance, mood disturbance, and anxiety; R53.1 Weakness; I10 Essential (primary) hypertension; D72.829 Elevated white blood cell count, unspecified; Z86.59 Personal history of other mental and behavioral disorders; R26.81 Unsteadiness on feet; Z90.710 Acquired absence of both cervix and uterus; Z90.5 Acquired absence of kidney; Z66 Do not resuscitate; E78.5 Hyperlipidemia, unspecified; W19.XXXA Unspecified fall, initial encounter
CPT/HCPCS: 36415; 70450; 71045; 72125; 73030; 80048; 80053; 81001; 83605; 84484; 85025; 87086; 87186; 87635; 93005; 96365; 96375; 97110; 97116; 97161; 97165; 99284; 99285; A9270; G0378; G0379; J0696

== ENCOUNTER 2022-07-06 08:12 | Outpatient (CLI) | payer OTHER, SELFPAY | END 2022-07-06 08:13 | disposition home or self-care (01) | LOC: AMB 07-18 12:19 | PROVIDERS: PCP Family Medicine; Visit Provider Family Medicine | DX: S19.9XXA Unspecified injury of neck, initial encounter (principal); S79.912A Unspecified injury of left hip, initial encounter; W19.XXXA Unspecified fall, initial encounter; Y92.091 Bathroom in other non-institutional residence as the place of occurrence of the external cause | CPT/HCPCS: A0425; A0427 ==

== ENCOUNTER 2022-07-06 08:36 | Inpatient (IN) | payer OTHER, SELFPAY ==
[2022-07-06] VITALS (11 sets, daily range): BP systolic 127–230; BP diastolic 77–109; PULSE 53–72; RESP 17–22; TEMP 36.1–37.7; O2SAT 88–98; BMI 21.3
[2022-07-06] MEDS: ONDANSETRON 2 MG/ML inj 4 MG IVP (08:42)
--- NOTE | 2022-07-06 08:42 | CRLHL7_ITS ---
For Patients: As a result of the Century Cures Act, medical imaging exams and procedure reports are released immediately into your electronic medical record. You may view this report before your referring provider. If you have questions, please contact your health care provider. INDICATION: Fall. TECHNIQUE: Head CT without contrast. Coronal and sagittal reformats were generated. COMPARISON: CT head from 06/16/2022. FINDINGS: CSF spaces: Within normal limits for age. Brain parenchyma and extra-axial spaces: Nonspecific low attenuation white matter changes consistent with chronic microvascular disease. No sign of mass, hemorrhage, or midline shift. Skull base and calvarium: The visualized paranasal sinuses and mastoid air cells demonstrate no acute or significant findings. The visualized orbits are grossly unremarkable. No skull fractures. Soft tissues: Mild soft tissue swelling along the left lateral parietal scalp, with a small subgaleal hematoma. No subcutaneous emphysema. IMPRESSION: No acute intracranial abnormality. Please note that all CT scans at this facility use dose modulation, iterative reconstruction, and/or weight-based dosing when appropriate to reduce radiation dose to as low as reasonably achievable. Dictated by Lionel Pina MD @ 07/06/2022 9:57:36 AM (Electronically Signed)
--- NOTE | 2022-07-06 08:42 | CRLHL7_ITS ---
For Patients: As a result of the Century Cures Act, medical imaging exams and procedure reports are released immediately into your electronic medical record. You may view this report before your referring provider. If you have questions, please contact your health care provider. INDICATION: Fall. TECHNIQUE: CT cervical spine without contrast. Coronal and sagittal reformats were generated. COMPARISON: None. FINDINGS: Limited by patient motion and incomplete inclusion of the C7 vertebral body. : Vertebrae: Alignment is normal. No fractures or suspicious bony lesions. Discs and facet joints: Multilevel degenerative changes include disc space narrowing, subchondral sclerosis, and marginal osteophyte formation. Osteoarthritic changes involve the apophyseal joints of the cervical spine. Extraspinal findings: Prevertebral soft tissues, visualized airway, and visualized lungs are unremarkable. IMPRESSION: Multilevel degenerative changes. No acute abnormality in the included cervical spine. Please note that all CT scans at this facility use dose modulation, iterative reconstruction, and/or weight-based dosing when appropriate to reduce radiation dose to as low as reasonably achievable. Dictated by Lionel Pina MD @ 07/06/2022 9:48:21 AM (Electronically Signed)
--- NOTE | 2022-07-06 08:42 | CRLHL7_ITS ---
For Patients: As a result of the Cures Act, medical imaging exams and procedure reports are released immediately into your electronic medical record. You may view this report before your referring provider. If you have questions, please contact your health care provider. INDICATION: Fall. TECHNIQUE: Pelvis and left hip, 3 views. COMPARISON: Pelvis and left hip radiographs from 02/16/2018. FINDINGS: Bones: Shortening of the left femoral neck with subtle lucency inferior to the femoral head. Old healed fracture of the right inferior pubic ramus. Joint spaces: Joint spaces are preserved. No degenerative changes. Soft tissues: Unremarkable. IMPRESSION: Impacted left femoral neck fracture. Dictated by Lionel Pina MD @ 07/06/2022 9:38:33 AM (Electronically Signed)
[2022-07-06] MEDS: MORPHINE 4 MG/ML INJ IVP (08:43)
--- NOTE | 2022-07-06 08:48 | ED_ITS ---
HPI - General Adult General Time Seen by Provider: 08:48 Date Seen: 07/06/22 Chief complaint: Fall/Minor Trauma Stated complaint: FALL Time Seen by Provider: 07/06/22 08:42 Source: patient Mode of arrival: EMS Limitations: no limitations History of Present Illness HPI narrative: Patient is an 81 year white female patient of a long-term care facility who apparently fell today, staff was trying to get her dressed they left briefly and they found her on the floor. She complains of pain in her neck and her left hip. She apparently denied loss of consciousness. Denies chest pain, simply lost balance. [place] paramedics report no focal neurologic weakness, that she is alert and awake. She has a mild tremor and some chronic communication difficulties. No other specific complaints. No recent illness. Related Data Home Medications Medication Instructions Recorded Confirmed amlodipine 2.5 mg tablet 2.5 mg PO DAILY 06/16/22 07/06/22 benztropine 0.5 mg tablet 0.5 mg PO DAILY 06/16/22 07/06/22 bupropion HCl 300 mg 24 hr tablet, 300 mg PO DAILY 06/16/22 07/06/22 extended release (Wellbutrin XL) cinacalcet 30 mg tablet 30 mg PO DAILY 06/16/22 07/06/22 lamotrigine 200 mg tablet 200 mg PO BID 06/16/22 07/06/22 levothyroxine 50 mcg tablet 50 mcg PO DAILY 06/16/22 07/06/22 losartan 25 mg tablet 12.5 mg PO DAILY 06/16/22 07/06/22 loxapine succinate 5 mg capsule 5 mg PO HS 06/16/22 07/06/22 sennosides 8.6 mg-docusate sodium 2 tab PO BID 06/16/22 07/06/22 50 mg tablet (Stimulant Laxative Plus) simvastatin 20 mg tablet 20 mg PO DAILY 07/06/22 07/06/22 Allergies Allergy/AdvReac Type Severity Reaction Status Date / Time No Known Drug Allergies Allergy Verified 06/16/22 09:07 Review of Systems Status of ROS: Reports: 6 or more systems reviewed and unremarkable except as noted in History and below [facility] Medical History (Updated 07/06/22 @ 12:46 by Carlos Newsome MD) Alzheimer's dementia without behavioral disturbance Bipolar disorder Chronic kidney disease Fracture of femoral neck, left GERD (gastroesophageal reflux disease) Hyperlipidemia Hypertension Hypothyroidism Osteoporosis Pelvic fracture Primary hyperparathyroidism Recurrent falls Renal cell carcinoma of left kidney Tardive dyskinesia Type 2 diabetes mellitus Surgical History History of hysterectomy History of nephrectomy, left History of tonsillectomy Family History (Updated 07/06/22 @ 12:40 by Carlos Newsome MD) Father High blood pressure Mother High blood pressure Social History Highest level of school completed/degree received: some college, no degree Smoking Status: Never smoker Do you use any of these nicotine containing products: None Second hand tobacco smoke exposure: No How often do you have a drink containing alcohol: never How often do you have six or more drinks on one occasion: Never AUDIT-C Alcohol total score: 0 Non-prescribed substance use: denies use Caffeine: No service: No Exam Narrative: Exam Narrative: Objective: Primary survey reveals no airway breathing circulatory or disability other than her left hip she complains of pain Secondary survey HEENT is unremarkable, neck she reports midline tenderness in the back of the neck she is in a C-collar this was not removed Chest back abdomen unremarkable to palpation lungs are clear, heart rhythm regular without murmur Abdomen benign soft Pelvis stable left hip shows pain with flexion extension pain with internal external rotation over the lateral hip Extremities good perfusion, just slight external rotation to the left lower extremity, but there is little bit to the right lower extremity as well. No open wounds, skin is intact Skin is warm and dry Const: Vital Signs, click to edit/add: Vital Signs - 24 hr 07/06/22 08:40 Temperature 96.9 F L Pulse Rate [Right Pulse Oximeter] 68 Respiratory Rate 18 Blood Pressure [Ri ght Upper Arm] 230/109 H Pulse Oximetry 93 Oxygen Delivery Me thod Room Air Course Course Hospital Course: Patient will get an IV cardiac monitoring, laboratory studies, x-rays of her left hip and pelvis, CT scan of her head neck Vital Signs Vital signs: Initial Vital Signs Temperature 96.9 F L 07/06/22 08:40 Temperature Source Temporal Artery Scan 07/06/22 08:40 Pulse Rate 68 07/06/22 08:40 Respiratory Rate 18 07/06/22 08:40 Blood Pressure 230/109 H 07/06/22 08:40 Blood Pressure Mean 149 07/06/22 08:40 Blood Pressure Position Sitting 07/06/22 08:40 Pulse Oximetry 93 07/06/22 08:40 Oxygen Delivery Method 07/06/22 08:40 Vital Signs Temperature 96.9 F L 07/06/22 08:40 Pulse Rate 68 07/06/22 08:40 Respiratory Rate 18 07/06/22 08:40 Blood Pressure 230/109 H 07/06/22 08:40 Pulse Oximetry 93 07/06/22 08:40 Oxygen Delivery Method 07/06/22 08:40 Temperature 98.9 F 07/06/22 14:09 Pulse Rate 71 07/06/22 14:09 Respiratory Rate 18 07/06/22 14:09 Blood Pressure 230/109 H 07/06/22 08:40 Pulse Oximetry 93 07/06/22 14:09 Oxygen Delivery Method 07/06/22 14:09 Oxygen Flow Rate 2 07/06/22 14:09 Medical Decision Making [facility] Narrative Medical decision making narrative: Patient has complicated chronic illnesses, she fell, complains of neck pain and left hip pain. Rule out neck injury, head injury, rhythm disturbance, electrolyte imbalance, hip fracture. Addendum: By my review the patient has an impacted left femoral neck fracture of her hip, Radiology confirms. By my read her EKG shows normal sinus rhythm biatrial enlargement LVH artifact. Have placed a Johnson catheter, will get laboratory studies. Patient will need admission for treatment of her hip fracture. The patient's head and neck CT scan read as chronic degenerative changes but no acute findings. Lab Data Labs: Lab Results 07/06/22 07/06/22 07/06/22 Range/Units 08:42 08:42 08:42 WBC 6.98 (4.50-11.00) K/uL RBC 4.29 (4.00-5.20) m/uL Hgb 13.3 (12.0-16.0) gm/dL Hct 41.7 (33.0-51.0) % MCV 97 (80-100) fL MCH 31 (26-34) pg MCHC 32 (32-36) gm/dL RDW Coeff of Evelyn 13.4 (11.5-15.5) % Plt Count 284 (140-440) K/uL Neut % (Auto) 75.7 H (42.0-72.0) % Lymph % (Auto) 11.3 L (20-44) % Dickson % (Auto) 10.0 (0.0-11.0) % Eos % (Auto) 2.0 (0.0-7.0) % Baso % (Auto) 0.6 (0.0-3.0) % Neut # (Auto) 5.30 (1.7-7.0) K/uL Lymph # (Auto) 0.80 L (0.90-2.90) K/uL Dickson # (Auto) 0.70 (0.00-0.90) K/UL Eos # (Auto) 0.14 (0.00-0.50) K/uL Baso # (Auto) 0.04 (0.00-0.30) K/uL Abs Immat Gran (auto) 0.03 (0.00-0.30) K/uL INR 0.97 (0.91-1.10) APTT 34 H (23-33) Seconds Sodium 140 (135-149) mmol/L Potassium 4.3 (3.6-5.1) mmol/L Chloride 104 (96-114) mmol/L Carbon Dioxide 26 (20-32) mmol/L BUN 46 H (7-30) mg/dL Creatinine 2.2 H (0.5-1.5) mg/dL Estimated Creat Clear 17.61 Estimated GFR 22 ml/min Glucose 103 (60-115) mg/dL Calcium 9.0 (8.4-10.6) mg/dL Total Bilirubin 0.6 (0.1-1.5) mg/dL Direct Bilirubin 0.3 (0.0-0.5) mg/dL AST 32 (12-35) U/L ALT 26 (4-35) U/L Alkaline Phosphatase 117 (40-150) U/L NT-Pro-B Natriuret Pep 2940 H (0-450) PG/mL Total Protein 7.4 (6.0-8.3) g/dL Albumin 4.1 (3.3-5.0) g/dL SARS-CoV-2 (PCR) (Negative) 07/06/22 Range/Units 09:25 WBC (4.50-11.00) K/uL RBC (4.00-5.20) m/uL Hgb (12.0-16.0) gm/dL Hct (33.0-51.0) % MCV (80-100) fL MCH (26-34) pg MCHC (32-36) gm/dL RDW Coeff of Evelyn (11.5-15.5) % Plt Count (140-440) K/uL Neut % (Auto) (42.0-72.0) % Lymph % (Auto) (20-44) % Dickson % (Auto) (0.0-11.0) % Eos % (Auto) (0.0-7.0) % Baso % (Auto) (0.0-3.0) % Neut # (Auto) (1.7-7.0) K/uL Lymph # (Auto) (0.90-2.90) K/uL Dickson # (Auto) (0.00-0.90) K/UL Eos # (Auto) (0.00-0.50) K/uL Baso # (Auto) (0.00-0.30) K/uL Abs Immat Gran (auto) (0.00-0.30) K/uL INR (0.91-1.10) APTT (23-33) Seconds Sodium (135-149) mmol/L Potassium (3.6-5.1) mmol/L Chloride (96-114) mmol/L Carbon Dioxide (20-32) mmol/L BUN (7-30) mg/dL Creatinine (0.5-1.5) mg/dL Estimated Creat Clear Estimated GFR ml/min Glucose (60-115) mg/dL Calcium (8.4-10.6) mg/dL Total Bilirubin (0.1-1.5) mg/dL Direct Bilirubin (0.0-0.5) mg/dL AST (12-35) U/L ALT (4-35) U/L Alkaline Phosphatase (40-150) U/L NT-Pro-B Natriuret Pep (0-450) PG/mL Total Protein (6.0-8.3) g/dL Albumin (3.3-5.0) g/dL SARS-CoV-2 (PCR) Negative SARS-CoV-2 (Negative) Discharge Plan Discharge Clinical Impression: Acute hip pain, Dementia, Weakness, Fall Discharge Location: [facility] Prescriptions: No Action benztropine 0.5 mg tablet 0.5 mg PO DAILY lamotrigine 200 mg tablet 200 mg PO BID sennosides-docusate sodium [Stimulant Laxative Plus] 8.6-50 mg tablet 2 tab PO BID loxapine succinate 5 mg capsule 5 mg PO HS bupropion HCl [Wellbutrin XL] 300 mg tablet extended release 24 hr 300 mg PO DAILY levothyroxine 50 mcg tablet 50 mcg PO DAILY losartan 25 mg tablet 12.5 mg PO DAILY amlodipine 2.5 mg tablet 2.5 mg PO DAILY cinacalcet 30 mg tablet 30 mg PO DAILY simvastatin 20 mg tablet 20 mg PO DAILY Follow Up/Referrals: Rajni Lzoano DO [Primary Care Provider] -
--- NOTE | 2022-07-06 09:10 | ED.NURSE ---
0900-Report received from REYNALDO Honeycutt. Pt at imaging at this time.
[2022-07-06 10:11] LABS: Basophils Absolute Auto 0.04 K/uL (0.00-0.30); Basophils Percent Auto 0.6 % (0.0-3.0); Eosinophils Absolute Auto 0.14 K/uL (0.00-0.50); Hematocrit 41.7 % (33.0-51.0); Hemoglobin* 13.3 gm/dL (12.0-16.0); Immature Granulocytes Abs Auto 0.03 K/uL (0.00-0.30); Lymphocytes Percent Auto 11.3 % (20-44); Mean Corpuscular HGB Conc 32 gm/dL (32-36); Mean Corpuscular Hemoglobin 31 pg (26-34); Mean Corpuscular Volume 97 fL (80-100); Neutrophils Percent Auto 75.7 % (42.0-72.0); Platelet Count* 284 K/uL (140-440); RDW Coefficient of Variation % 13.4 % (11.5-15.5); Red Blood Count 4.29 m/uL (4.00-5.20); White Blood Count* 6.98 K/uL (4.50-11.00)
[2022-07-06 10:13] LABS: Albumin* 4.1 g/dL (3.3-5.0)
[2022-07-06 10:14] LABS: Chloride* 104 mmol/L (96-114); Potassium* 4.3 mmol/L (3.6-5.1); Sodium* 140 mmol/L (135-149)
[2022-07-06 10:16] LABS: Alkaline Phosphatase* 117 U/L (40-150); Aspartate Amino Transferase* 32 U/L (12-35); Bilirubin Direct* 0.3 mg/dL (0.0-0.5); Bilirubin Total* 0.6 mg/dL (0.1-1.5); Blood Urea Nitrogen* 46 mg/dL (7-30); Carbon Dioxide* 26 mmol/L (20-32); Creatinine* 2.2 mg/dL (0.5-1.5); Est. Creatinine Clearance* 17.61; Estimated Glomerular Filt Rate 22 ml/min; Total Protein* 7.4 g/dL (6.0-8.3)
[2022-07-06 10:17] LABS: Alanine Aminotransferase* 26 U/L (4-35); Glucose* 103 mg/dL (60-115); Slide Review Reflex No
[2022-07-06] MEDS: 0.9 % SODIUM CHLORIDE 500 ML 500 ML IV (10:18)
[2022-07-06 10:26] LABS: NT Pro B Type NatriureticPept* 2940 PG/mL (0-450)
[2022-07-06 10:27] LABS: INR 0.97 (0.91-1.10); Prothrombin Time 13.3 Seconds
[2022-07-06 10:28] LABS: Partial Thromboplastin Time* 34 Seconds (23-33)
[2022-07-06 10:34] LABS: SARS PCR* Negative SARS-CoV-2 (Negative)
--- NOTE | 2022-07-06 12:30 | CRLHL7_ITS ---
For Patients: As a result of the Century Cures Act, medical imaging exams and procedure reports are released immediately into your electronic medical record. You may view this report before your referring provider. If you have questions, please contact your health care provider. INDICATION: Fall TECHNIQUE: Chest 1 view. COMPARISON: 05/27/22 FINDINGS: Cardiovascular and mediastinum: Heart size and vasculature are normal in caliber and appearance. Mediastinum is within normal limits. Lungs and pleural space: Lungs are clear. No sign of infiltrate or mass. No sign of pleural effusion. No pneumothorax. Bones and soft tissues: No significant findings. IMPRESSION: Unremarkable chest. Dictated by: Alberto Lincoln MD @ 07/06/2022 13:30:21 (Electronically Signed)
--- NOTE | 2022-07-06 12:36 | PM.IMHP1 ---
Hospitalist- H&P: HPI History of Present Illness Date Seen: 07/06/22 Chief complaint: FALL Narrative: Michelle Markham is a 81 year old female admitted through the emergency department after a fall at home. Staff were helping her to get dressed today. They briefly left her and they found her laying on the floor. She was complaining of left hip pain and neck pain. In the emergency department she was evaluated and found to have an impacted femoral neck fracture. No significant head injury or injury to her C-spine identified on imaging. She has not had any focal neurologic deficits identified. Patient is quite frail and has a history of falls. She was hospitalized here June 16 and after a series of falls at home as well. No obvious serious injury or illness was identified at that time though she was identified with a urinary tract infection with pansensitive E coli. She was treated with Cipro. Review of Systems Narrative: Patient has dementia and is unable to give much history. She does acknowledge some hip pain. She also reports being thirsty and having a dry mouth. Otherwise denies any symptoms of illness or other injury when I am speaking to her today [facility] Medical History (Updated 07/06/22 @ 12:46 by Carlos Newsome MD) Alzheimer's dementia without behavioral disturbance Bipolar disorder Chronic kidney disease Fracture of femoral neck, left GERD (gastroesophageal reflux disease) Hyperlipidemia Hypertension Hypothyroidism Osteoporosis Pelvic fracture Primary hyperparathyroidism Recurrent falls Renal cell carcinoma of left kidney Tardive dyskinesia Type 2 diabetes mellitus Surgical History History of hysterectomy History of nephrectomy, left History of tonsillectomy Family History (Updated 07/06/22 @ 12:40 by Carlos Newsome MD) Father High blood pressure Mother High blood pressure Social History Highest level of school completed/degree received: some college, no degree Smoking Status: Never smoker Do you use any of these nicotine containing products: None Second hand tobacco smoke exposure: No How often do you have a drink containing alcohol: never How often do you have six or more drinks on one occasion: Never AUDIT-C Alcohol total score: 0 Non-prescribed substance use: denies use Caffeine: No service: No Meds Home Medications and Allergies Home Medications Medication Instructions Recorded Confirmed Type amlodipine 2.5 mg tablet 2.5 mg PO DAILY 06/16/22 07/06/22 History benztropine 0.5 mg tablet 0.5 mg PO DAILY 06/16/22 07/06/22 History bupropion HCl 300 mg 24 hr tablet, 300 mg PO DAILY 06/16/22 07/06/22 History extended release (Wellbutrin XL) cinacalcet 30 mg tablet 30 mg PO DAILY 06/16/22 07/06/22 History lamotrigine 200 mg tablet 200 mg PO BID 06/16/22 07/06/22 History levothyroxine 50 mcg tablet 50 mcg PO DAILY 06/16/22 07/06/22 History losartan 25 mg tablet 12.5 mg PO DAILY 06/16/22 07/06/22 History loxapine succinate 5 mg capsule 5 mg PO HS 06/16/22 07/06/22 History sennosides 8.6 mg-docusate sodium 2 tab PO BID 06/16/22 07/06/22 History 50 mg tablet (Stimulant Laxative Plus) simvastatin 20 mg tablet 20 mg PO DAILY 07/06/22 07/06/22 History Allergies Allergy/AdvReac Type Severity Reaction Status Date / Time No Known Drug Allergies Allergy Verified 06/16/22 09:07 Exam Narrative: Exam Narrative: She is awake and lying on the gurney. She appears in no obvious distress. She is oriented to being in the hospital. She cannot tell me the circumstances of foot brought her to the hospital today. She does report a dry mouth and pain in the area of her left hip. Otherwise unable to give me much history of recent events or health status. Head is without obvious trauma. Pupils are equal round reactive to light. Cataracts are present. Extraocular movements are full. Oropharynx with dry mucous membranes. She has an upper denture plate no lower teeth. Mucous membranes are dry. Neck is supple without mass or adenopathy. Respirations are clear to auscultation without wheezing, rales, rhonchi. Cardiovascular: S1, S2, regular rate and rhythm. No murmur gallop or rub. Abdomen: Bowel sounds active. Abdomen is soft without tenderness or mass. She has tenderness with palpation around her left hip. No obvious deformity, abnormal rotation or shortening of her left lower extremity. She is unable to move her left hip secondary to pain. She moves her feet and ankles bilaterally well. She has intact pulses. Intact sensation. No edema. Const: Vital Signs, click to edit/add: Vital Signs - 24 hr 07/06/22 08:40 Temperature 96.9 F L Pulse Rate [Right Pulse Oximeter] 68 Respiratory Rate 18 Blood Pressure [Ri ght Upper Arm] 230/109 H Pulse Oximetry 93 Oxygen Delivery Me thod Room Air Documenting provider has reviewed patient's vital signs: yes Hospitalist - H&P: Result Labs Labs: Short CBC 07/06/22 Range/Units 08:42 WBC 6.98 (4.50-11.00) K/uL Hgb 13.3 (12.0-16.0) gm/dL Hct 41.7 (33.0-51.0) % Plt Count 284 (140-440) K/uL BMP 07/06/22 08:42 Sodium 140 Potassium 4.3 Chloride 104 Carbon Dioxide 26 BUN 46 H Creatinine 2.2 H Glucose 103 Calcium 9.0 Liver Function 07/06/22 Range/Units 08:42 Total Bilirubin 0.6 (0.1-1.5) mg/dL Direct Bilirubin 0.3 (0.0-0.5) mg/dL AST 32 (12-35) U/L ALT 26 (4-35) U/L Alkaline Phosphatase 117 (40-150) U/L Albumin 4.1 (3.3-5.0) g/dL Assessment and Plan Assessment and plan (1) Fracture of femoral neck, left: Status: Acute Assessment and Plan: Plan on surgery tomorrow. (2) Dementia: Status: Acute Assessment and Plan: At risk for delirium. Continue normal psychiatric meds. Watch for drug interactions. (3) Recurrent falls: Status: Acute Assessment and Plan: Postop PT and OT evaluations. (4) Chronic kidney disease: Problem comment: Stage IV Status: Acute Assessment and Plan: Avoid hypotension. IV fluids for dehydration today. Follow renal function postoperatively. Plan Patient is admitted for management of hip fracture and other chronic medical problems. She is relatively frail. Anticipate a slow and possibly difficult recovery. Total time spent today is 75 minutes, 50 minutes in coordination of care and discussing with other providers ongoing management of hip fracture and postoperative care
--- NOTE | 2022-07-06 12:59 | W.PC.EDHO ---
Primary Language: Romanian Preferred Language: Orientation Status: [] Alert & Oriented [] Slight Confusion [] Known Dx Dementia Transfers By: [] Assist of 1 [] Assist of 2 [] Lift Active Medications Discontinued Medications Generic Name Dose Route Start Last Admin Trade Name Delicia PRN Reason Stop Dose Admin Sodium Chloride 500 mls @ 500 mls/hr 07/06/22 10:03 07/06/22 10:18 0.9 % Sodium Chloride 500 Ml IV 07/06/22 11:02 500 mls/hr .Q1H ONE Administration Morphine Sulfate 4 mg 07/06/22 08:44 07/06/22 08:43 Morphine 4 Mg/Ml Inj IVP 07/06/22 08:45 4 mg ONCE ONE Administration Ondansetron HCl 4 mg 07/06/22 08:44 07/06/22 08:42 Ondansetron 2 Mg/Ml Inj IVP 07/06/22 08:45 4 mg ONCE ONE Administration Description of Symptoms ED Triage Present Problem pt resides at [facility], staff was with her and Description assisting her to bathroom they then stepped away for approx 20min and found her on the floor, c/o posterior neck pain and left hip pain ED Triage Date of Onset of 07/06/22 Symptoms Female History Patient Patient No Pain Pain Intensity 4 Pain Intensity 5 Pain Scale Used Numeric (1 - 10) Pain Scale Used Numeric (1 - 10) Oxygen Administration Pulse Oximetry 93 Oxygen Delivery Method Room Air
--- NOTE | 2022-07-06 13:15 | ED.NURSE ---
0840-#20G IV established in R FA by REYNALDO Honeycutt.
--- NOTE | 2022-07-06 13:20 | CRLHL7_ITS ---
For Patients: As a result of the Cures Act, medical imaging exams and procedure reports are released immediately into your electronic medical record. You may view this report before your referring provider. If you have questions, please contact your health care provider. INDICATION: Fall, left hip pain TECHNIQUE: Single AP view left hip COMPARISONS: None available. FINDINGS: The left femoral head is seated in the acetabulum. There is a mildly impacted subcapital femoral neck fracture. There is moderate degenerative change of the left hip. The soft tissues are unremarkable. IMPRESSION: Mildly impacted subcapital femoral neck fracture. Dictated by Roland Durant MD @ 07/06/2022 1:38:50 PM (Electronically Signed)
--- NOTE | 2022-07-06 14:54 | REH.OT ---
OT/PT received orders to see patient post op. Noted plan for surgery tomorrow due to L femoral neck fx. Will await to see patient post op.
[2022-07-06] MEDS: LACTATED RINGERS 1000 ML 500 ML IV (15:31)
[2022-07-06] MEDS: AMLODIPINE 5 MG TABLET 2.5 MG PO (15:32)
--- NOTE | 2022-07-06 15:52 | PC.SOCIAL ---
Pt. has a post acute care registered nurse Lor Herrera from [facility] at [phone] who wants to updated on pt.'s discharge status. Received a call from Sully at the [facility] who states they have an opening and could assess to take pt. if mcfp is needed. Pt. just came to the floor so only the initial H&P was sent.
--- NOTE | 2022-07-06 15:58 | PC.SOCIAL ---
Pt. resides on the [facility]. Received a call from Sully at [facility] who states they have a bed and can assess to take pt. when ready for discharge. Pt. .just arrived to the floor so just the initial H&P sent to assess. Pt. has a child care lead teacher, Lor Herrera through [employer] at [phone] who wants to be updated when pt. is ready for discharge.
[2022-07-06] MEDS: LACTATED RINGERS 1000 ML 1,000 ML 75 ML IV (16:03)
[2022-07-06] MEDS: ACETAMINOPHEN 325 MG TABLET 650 MG PO ×2 (16:17→22:04)
--- NOTE | 2022-07-06 18:41 | PC.NURSE ---
Pt on bedrest, reposition Q2H or less, pt mildly tolerated small movements. Refused morphine, accepted Tylenol per eMAR with relief. Offered but refused active ice to left hip. Johnson cath patent and draining.
[2022-07-06] MEDS: lamoTRIgine 100 MG TABLET 200 MG PO (20:28)
[2022-07-06] MEDS: SENNOSIDES/DOCUSATE TABLET 2 TAB PO (20:28)
--- NOTE | 2022-07-06 22:23 | PC.NURSE ---
PATIENT PLEASANT AND COOPERATIVE, ALERT BUT FORGETFUL HX DEMENTIA, TAKES PILLS NORMALLY WITH PUDDING WAS ABLE TO TOLERATE WITH JELLO DUE TO CLD, RATING PAIN MODERATE IN LEFT HIP, DECLINING MORNING THAT MAKES ME FEEL FUNNY, PRN TYLENOL GIVEN AND ICE PACK TO SITE, TURN AND REPO.
[2022-07-07] VITALS (23 sets, daily range): BP systolic 77–189; BP diastolic 26–89; PULSE 45–97; RESP 16–22; TEMP 36.4–37.4; O2SAT 90–98
[2022-07-07] MEDS: ACETAMINOPHEN 325 MG TABLET 650 MG PO ×3 (04:52→21:23)
[2022-07-07] MEDS: MORPHINE 2 MG/ML inj IVP (05:00)
--- NOTE | 2022-07-07 06:42 | PC.NURSE ---
Alert and oriented to self. Vital signs stable. Pain from the hip fx. Was only taking Tyenol for pain because she was scared of getting addicted to Morphine. Agreed to taking Morphine this AM and looked much better and comfortable. Johnson is intact and patent; cares provided overnight
[2022-07-07 07:17] LABS: Basophils Percent Auto 0.3 % (0.0-3.0); Hematocrit 39.2 % (33.0-51.0); Hemoglobin* 12.4 gm/dL (12.0-16.0); Immature Granulocytes Abs Auto 0.03 K/uL (0.00-0.30); Lymphocytes Percent Auto 3.6 % (20-44); Mean Corpuscular HGB Conc 32 gm/dL (32-36); Mean Corpuscular Hemoglobin 31 pg (26-34); Mean Corpuscular Volume 99 fL (80-100); Monocytes Percent Auto 7.7 % (0.0-11.0); Neutrophils Percent Auto 86.2 % (42.0-72.0); Platelet Count* 188 K/uL (140-440); RDW Coefficient of Variation % 13.6 % (11.5-15.5); Red Blood Count 3.97 m/uL (4.00-5.20); White Blood Count* 14.07 K/uL (4.50-11.00)
[2022-07-07 07:19] LABS: Slide Review Reflex No
[2022-07-07 07:38] LABS: Chloride* 102 mmol/L (96-114); Potassium* 4.3 mmol/L (3.6-5.1); Sodium* 136 mmol/L (135-149)
[2022-07-07 07:41] LABS: Blood Urea Nitrogen* 37 mg/dL (7-30); Carbon Dioxide* 26 mmol/L (20-32); Creatinine* 1.9 mg/dL (0.5-1.5); Est. Creatinine Clearance* 20.39; Estimated Glomerular Filt Rate 26 ml/min
[2022-07-07 07:42] LABS: Calcium* 8.6 mg/dL (8.4-10.6); Glucose* 111 mg/dL (60-115)
[2022-07-07] MEDS: lamoTRIgine 100 MG TABLET 200 MG PO ×2 (08:12→21:24)
[2022-07-07] MEDS: LEVOTHYROXINE 50 MCG TABLET PO (08:12)
[2022-07-07] MEDS: BENZTROPINE MESYLATE 1 MG TABLET 0.5 MG PO (08:12)
[2022-07-07] MEDS: SIMVASTATIN 20 MG TABLET PO (08:18)
[2022-07-07] MEDS: buPROPion XL 150 MG TABLET 300 MG PO (08:18)
[2022-07-07] MEDS: LACTATED RINGERS 1000 ML 1,000 ML 75 ML IV ×2 (08:49→23:33)
--- NOTE | 2022-07-07 11:08 | CRLHL7_ITS ---
For Patients: As a result of the Cures Act, medical imaging exams and procedure reports are released immediately into your electronic medical record. You may view this report before your referring provider. If you have questions, please contact your health care provider. Indication: LT HIP FX, ORIF OF LT HIP Technique: Two fluoroscopic images of the left hip. Fluoroscopic time 48.4 seconds. IMPRESSION: Fluoroscopic guidance for open reduction internal fixation left proximal femoral fracture. Dictated by Alberto Choi MD @ 07/07/2022 1:25:19 PM (Electronically Signed)
[2022-07-07] MEDS: CEFAZOLIN 1 GM inj IVP (12:20)
--- NOTE | 2022-07-07 12:53 | PC.NURSE ---
End of Shift Note: Pt left the unit around 12 pm to go for surgery. Her sister was at bedside with patient and did sign consent for surgery. Pt is A & O occasionally noted some confusion. Received one dose of pain medication IV see MAR before she went into the surgery so that we could turn and reposition her without much discomfort. Awaiting her return if she gets back before 3:30 otherwise will hand her off to next shift.
--- NOTE | 2022-07-07 13:07 | PM.IMPN1 ---
Progress Note: A&P Assessment and plan (1) Fracture of femoral neck, left: Status: Acute Assessment and Plan: Pending surgery (2) Dementia: Status: Acute Assessment and Plan: No behavioral issues (3) Recurrent falls: Status: Acute Assessment and Plan: Ongoing therapy assessment and treatment postoperatively (4) Chronic kidney disease: Problem details: Stage IV Status: Acute Assessment and Plan: Modestly improved today. Continue to monitor Plan Will continue to manage patient's medical problems following surgery. Coordinate with Orthopedics, therapy and certified social workers in health care to develop a plan of care going forward. Time Spent With Patient Total time spent: Total time spent today is 25 minutes, 15 minutes in coordination of care and discussing with patient ongoing evaluation management of hip fracture Subjective Date Seen: 07/07/22 Interval history: 81-year-old female seen in followup of hospital admission for femoral neck fracture. She had an uneventful overnight. She reports her pain is been adequately managed. She has no other concerns today. She is pending surgery. Exam Narrative: Exam Narrative: She is alert and appears in no obvious distress. She is oriented to her circumstances. Respirations are clear to auscultation. Cardiovascular: S1, S2, regular rate and rhythm. No murmur gallop or rub. Abdomen: Bowel sounds active. Abdomen is soft without tenderness. Intact pulses, strength and sensation distally in her feet and ankles. Const: Vital Signs, click to edit/add: Vital Signs - 24 hr 07/06/22 14:09 07/06/22 14:17 07/06/22 14:00 Temperature 98.9 F 98.9 F Pulse Rate [Left P ulse Oximeter] 71 Respiratory Rate 18 18 18 Blood Pressure [Le ft Arm] Pulse Oximetry 93 93 93 Oxygen Delivery Me thod Nasal Cannula Nasal Cannula Nasal Cannula Oxygen Flow Rate 2 2 2 07/06/22 15:00 07/06/22 15:00 07/06/22 19:00 Temperature 98.7 F 99.8 F H Pulse Rate [Left P ulse Oximeter] 72 68 Respiratory Rate 18 18 18 Blood Pressure [Le ft Arm] 127/108 H 137/94 H Pulse Oximetry 96 88 Oxygen Delivery Me thod Nasal Cannula Room Air Oxygen Flow Rate 2 07/06/22 23:00 07/06/22 23:00 07/07/22 03:00 Temperature 99.4 F 98.7 F Pulse Rate [Left P ulse Oximeter] 53 L 53 L 97 Respiratory Rate 18 18 18 Blood Pressure [Le ft Arm] 147/79 H 146/59 H Pulse Oximetry 90 92 Oxygen Delivery Me thod Room Air Nasal Cannula Oxygen Flow Rate 2 07/07/22 00:44 07/07/22 08:30 07/07/22 08:39 Temperature 98.3 F Pulse Rate [Left P ulse Oximeter] 74 74 Respiratory Rate 20 20 20 Blood Pressure [Le ft Arm] 171/71 H Pulse Oximetry 93 Oxygen Delivery Me thod Nasal Cannula Nasal Cannula Oxygen Flow Rate 2 1 Labs Labs: Laboratory Results - last 24 hr 07/07/22 07/07/22 06:27 06:27 WBC 14.07 H RBC 3.97 L Hgb 12.4 Hct 39.2 MCV 99 MCH 31 MCHC 32 RDW Coeff of Evelyn 13.6 Plt Count 188 Neut % (Auto) 86.2 H Lymph % (Auto) 3.6 L [place] % (Auto) 7.7 Eos % (Auto) 2.0 Baso % (Auto) 0.3 Neut # (Auto) 12.10 H Lymph # (Auto) 0.50 L [place] # (Auto) 1.10 H Eos # (Auto) 0.30 Baso # (Auto) 0.00 Abs Immat Gran (auto) 0.03 Sodium 136 Potassium 4.3 Chloride 102 Carbon Dioxide 26 BUN 37 H Creatinine 1.9 H Estimated Creat Clear 20.39 Estimated GFR 26 Glucose 111 Calcium 8.6
--- NOTE | 2022-07-07 13:09 | W.PM.NB ---
Nerve Block Nerve Block Date Seen: 07/07/22 Type of block requested by surgeon for post-operative analgesia: STANLEY/LFCN Side: left Time out performed: Yes Verification of patient name: Yes Verification of date of : Yes Site marking: site marked Name of person performing procedure: Pancho Continuous monitoring Was continuous monitoring of O2 sat, B/P, sales team leader, recorded every 15 minutes?: Yes Procedure Checklist: sterile prep, needles and gloves Ultrasound guided. Images saved: Yes Medications given in 5ml increments after negative aspiration: Marcaine %: 0.5 mL: 30 Needle gauge: 20 Decadron (mg): 10 Precedex (mcg): 25 Patient tolerated procedure well: Yes Additional comments: Needle noted adjacent to nerve Block Charges Block Charge (with Pro Fee): Other Periph Nerve Block Use of Ultrasound Machine for Block: Yes- US Guidance/pain block
--- NOTE | 2022-07-07 13:10 | PM.ORCN ---
History of Present Illness HPI Date Seen: 07/07/22 Requesting physician: Carlos Newsome Chief complaint: [facility] Medical History Alzheimer's dementia without behavioral disturbance Bipolar disorder Chronic kidney disease Fracture of femoral neck, left GERD (gastroesophageal reflux disease) Hyperlipidemia Hypertension Hypothyroidism Osteoporosis Pelvic fracture Primary hyperparathyroidism Recurrent falls Renal cell carcinoma of left kidney Tardive dyskinesia Type 2 diabetes mellitus Surgical History History of hysterectomy History of nephrectomy, left History of tonsillectomy Family History Father High blood pressure Mother High blood pressure Social History Highest level of school completed/degree received: some college, no degree Smoking Status: Never smoker Do you use any of these nicotine containing products: None Second hand tobacco smoke exposure: No How often do you have a drink containing alcohol: never How often do you have six or more drinks on one occasion: Never AUDIT-C Alcohol total score: 0 Non-prescribed substance use: denies use Caffeine: No service: No Meds Home Medications and Allergies Home Medications Medication Instructions Recorded Confirmed Type amlodipine 2.5 mg tablet 2.5 mg PO DAILY 06/16/22 07/06/22 History benztropine 0.5 mg tablet 0.5 mg PO DAILY 06/16/22 07/06/22 History bupropion HCl 300 mg 24 hr tablet, 300 mg PO DAILY 06/16/22 07/06/22 History extended release (Wellbutrin XL) cinacalcet 30 mg tablet 30 mg PO DAILY 06/16/22 07/06/22 History lamotrigine 200 mg tablet 200 mg PO BID 06/16/22 07/06/22 History levothyroxine 50 mcg tablet 50 mcg PO DAILY 06/16/22 07/06/22 History losartan 25 mg tablet 12.5 mg PO DAILY 06/16/22 07/06/22 History loxapine succinate 5 mg capsule 5 mg PO HS 06/16/22 07/06/22 History sennosides 8.6 mg-docusate sodium 2 tab PO BID 06/16/22 07/06/22 History 50 mg tablet (Stimulant Laxative Plus) simvastatin 20 mg tablet 20 mg PO DAILY 07/06/22 07/06/22 History Allergies Allergy/AdvReac Type Severity Reaction Status Date / Time No Known Drug Allergies Allergy Verified 06/16/22 09:07 Ortho Exam Const Vital Signs, click to edit/add: Vital Signs - 24 hr 07/06/22 14:09 07/06/22 14:17 07/06/22 14:00 Temperature 98.9 F 98.9 F Pulse Rate [Left Pulse Oximeter] 71 Respiratory Rate 18 18 18 Blood Pressure [Left Arm] Pulse Oximetry 93 93 93 Oxygen Delivery Method Nasal Cannula Nasal Cannula Nasal Cannula Oxygen Flow Rate 2 2 2 07/06/22 15:00 07/06/22 15:00 07/06/22 19:00 Temperature 98.7 F 99.8 F H Pulse Rate [Left Pulse Oximeter] 72 68 Respiratory Rate 18 18 18 Blood Pressure [Left Arm] 127/108 H 137/94 H Pulse Oximetry 96 88 Oxygen Delivery Method Nasal Cannula Room Air Oxygen Flow Rate 2 07/06/22 23:00 07/06/22 23:00 07/07/22 03:00 Temperature 99.4 F 98.7 F Pulse Rate [Left Pulse Oximeter] 53 L 53 L 97 Respiratory Rate 18 18 18 Blood Pressure [Left Arm] 147/79 H 146/59 H Pulse Oximetry 90 92 Oxygen Delivery Method Room Air Nasal Cannula Oxygen Flow Rate 2 07/07/22 00:44 07/07/22 08:30 07/07/22 08:39 Temperature 98.3 F Pulse Rate [Left Pulse Oximeter] 74 74 Respiratory Rate 20 20 20 Blood Pressure [Left Arm] 171/71 H Pulse Oximetry 93 Oxygen Delivery Method Nasal Cannula Nasal Cannula Oxygen Flow Rate 2 1 Extremity Other: The patient is examined supine on the hospital bed. The skin about the left hip is intact and normal. CMS to the foot is normal. Results Labs Labs: Laboratory Results - last 48 hr 07/06/22 07/06/22 07/06/22 08:42 08:42 08:42 WBC 6.98 RBC 4.29 Hgb 13.3 Hct 41.7 MCV 97 MCH 31 MCHC 32 RDW Coeff of Evelyn 13.4 Plt Count 284 Neut % (Auto) 75.7 H Lymph % (Auto) 11.3 L [place] % (Auto) 10.0 Eos % (Auto) 2.0 Baso % (Auto) 0.6 Neut # (Auto) 5.30 Lymph # (Auto) 0.80 L [place] # (Auto) 0.70 Eos # (Auto) 0.14 Baso # (Auto) 0.04 Abs Immat Gran (auto) 0.03 INR 0.97 APTT 34 H Sodium 140 Potassium 4.3 Chloride 104 Carbon Dioxide 26 BUN 46 H Creatinine 2.2 H Estimated Creat Clear 17.61 Estimated GFR 22 Glucose 103 Calcium 9.0 Total Bilirubin 0.6 Direct Bilirubin 0.3 AST 32 ALT 26 Alkaline Phosphatase 117 NT-Pro-B Natriuret Pep 2940 H Total Protein 7.4 Albumin 4.1 SARS-CoV-2 (PCR) 07/06/22 07/07/22 07/07/22 09:25 06:27 06:27 WBC 14.07 H RBC 3.97 L Hgb 12.4 Hct 39.2 MCV 99 MCH 31 MCHC 32 RDW Coeff of Evelyn 13.6 Plt Count 188 Neut % (Auto) 86.2 H Lymph % (Auto) 3.6 L [place] % (Auto) 7.7 Eos % (Auto) 2.0 Baso % (Auto) 0.3 Neut # (Auto) 12.10 H Lymph # (Auto) 0.50 L [place] # (Auto) 1.10 H Eos # (Auto) 0.30 Baso # (Auto) 0.00 Abs Immat Gran (auto) 0.03 INR APTT Sodium 136 Potassium 4.3 Chloride 102 Carbon Dioxide 26 BUN 37 H Creatinine 1.9 H Estimated Creat Clear 20.39 Estimated GFR 26 Glucose 111 Calcium 8.6 Total Bilirubin Direct Bilirubin AST ALT Alkaline Phosphatase NT-Pro-B Natriuret Pep Total Protein Albumin SARS-CoV-2 (PCR) Negative SARS-CoV-2 Diagnostic results Additional Comments: An AP pelvis and cross-table lateral view of the left hip show a minimally displaced left femoral neck fracture. There is no pre-existing hip joint arthritis. There is no obvious pathologic lesion. Assessment and Plan Assessment and plan (1) Fracture of femoral neck, left: Status: Acute Total time spent: Total time spent is greater than 50% in coordination of care (as documented) at patient's floor/unit and/or counseling patient: (2) Dementia: Status: Acute Total time spent: Total time spent is greater than 50% in coordination of care (as documented) at patient's floor/unit and/or counseling patient: (3) Recurrent falls: Status: Acute Total time spent: Total time spent is greater than 50% in coordination of care (as documented) at patient's floor/unit and/or counseling patient: (4) Chronic kidney disease: Problem comment: Stage IV Status: Acute Total time spent: Total time spent is greater than 50% in coordination of care (as documented) at patient's floor/unit and/or counseling patient: Plan I told the patient and her sister Facundo that her injury is best treated with cannulated screw fixation. The risks, benefits and expected outcomes were discussed in detail. These included but were not limited to: Infection, bleeding, injury to blood vessel or nerve, venous thromboembolism. All questions were answered to their satisfaction. She has been medically cleared for surgery. Therefore, we will plan to take her to the operating room today.
--- NOTE | 2022-07-07 13:20 | W.ANESCHARGE ---
Anesthesia Charges Start Date/Time Anesthesia Start Date: 07/07/22 Anesthesia Start Time: 12:03 Stop Date/Time Anesthesia Stop Date: 07/07/22 Anesthesia Stop Time: 13:20 Summary Extremes of Age: Over 71-CPT 40098
--- NOTE | 2022-07-07 13:22 | P.ORPRC_ITS ---
Procedure Note Date of procedure: 07/07/22 Procedure: SURGEON: Luis Armando Flores MD RESIDENT ASSISTANT CNA: SANJEEV Lindsey PREOPERATIVE DIAGNOSIS: Left hip minimally displaced femoral neck fracture POSTOPERATIVE DIAGNOSIS: Left hip minimally displaced femoral neck fracture NAME OF OPERATION: Left hip fracture ORIF IMPLANTS: Cannulated screws x3 ANESTHESIA: Spinal ESTIMATED BLOOD LOSS: 5 mL COMPLICATIONS: None SPECIMENS: None DRAINS: None PREOPERATIVE ANTIBIOTICS: Ancef 1 g INDICATIONS: The patient is a 81-year-old female who fell sustaining a minimally displaced left femoral neck fracture. They were admitted for workup and care. They were diagnosed with a femoral neck fracture. They have been medically cleared for surgery. The risks, benefits and expected outcomes were discussed in detail. These included but were not limited to: Infection, bleeding, injury to blood vessel or nerve, venous thromboembolism. All questions were answered to their satisfaction. Use of an registered medical assistant was necessary for patient positioning and safety, soft tissue retraction and closure, dressing application, and transfer of the patient to and from the hospital bed to the fracture table. PROCEDURE: Spinal anesthesia was administered. The patient was placed supine on the fracture table. The lower extremity was prepped and draped in the usual sterile fashion. Guide pin placement was estimated with the image intensifier. A lateral incision was made over the flare of the greater trochanter. Subcutaneous dissection was made with the Rosario elevator to the lateral cortex of the femur. Our starting point was identified with the image intensifier. An inferior guide pin was placed on the AP view, center of the femoral head on the lateral view. Its placement was confirmed on both views. We then freehand placed an anterior pin in the superior position. Finally, we placed a 3rd guide pin posteriorly in the superior position. Lengths were measured. The lateral cortex was penetrated with the cannulated drill. We placed the inferior screw 1st, using a washer. This had excellent purchase. We placed the anterior, superior screw next. Again, this had excellent purchase. Finally, we placed the posterior, superior screw. This had excellent purchase as well. This construct was imaged with the C-arm and was felt to be well placed. The wound was irrigated with normal saline. The IT band was closed with an 0 Vicryl in an interrupted [id number] fashion. The subcutaneous tissues were reapproximated with a 2-0 Stratafix. Skin was closed with a running 4-0 Stratafix in a subcuticular fashion and glue. A dry dressing was applied. Sponge and needle counts were correct x2. The patient tolerated the procedure well. There were no apparent complications. They were carefully transferred to the hospital bed and taken to the postanesthesia care unit in satisfactory condition. PLAN: The patient will be mobilized with physical therapy. They will be nonweightbearing on the left lower extremity for 4-6 weeks. Aspirin will be used for DVT prophylaxis. They will be discharged to a skilled nursing once medically appropriate.
[2022-07-07] MEDS: PHENYLEPHRINE 100 MCG/ML SYRINGE IVP ×2 (13:29→13:43)
--- NOTE | 2022-07-07 13:45 | W.ANESCHARGE ---
Anesthesia Charges Start Date/Time Anesthesia Start Date: 07/07/22 Anesthesia Start Time: 12:03 Stop Date/Time Anesthesia Stop Date: 07/07/22 Anesthesia Stop Time: 13:20
--- NOTE | 2022-07-07 14:22 | SUR.PHASEI ---
patient met anesthesia criteria for discharge.
[2022-07-07] MEDS: AMLODIPINE 5 MG TABLET PO (16:16)
[2022-07-07] MEDS: OXYCODONE 5 MG TABLET PO ×4 (17:37→21:24)
[2022-07-07] MEDS: CEFAZOLIN 1 GM in 0.9 % SODIUM CHLORIDE Mini-bag 100 ML IVPB (18:28)
[2022-07-07] MEDS: SENNOSIDES 1 TAB TABLET 2 TAB PO (20:13)
[2022-07-07] MEDS: ASPIRIN EC 325 MG TABLET 81 MG PO (21:22)
--- NOTE | 2022-07-07 22:40 | PC.NURSE ---
Shift [id number]- Patient naps on and off this afternoon, denying pain. Appetite intact and tolerates food and drink without issue. She complains of pain later this afternoon and evening, pain medication given with some relief, and eventually appears comfortable tonight, though she is forgetful and continues to ask about tylenol (which has been given)- see eMAR for times. She also asks other repetitive questions due to forgetfulness (e.g. Am I staying her for a while?) She is turned and repositioned with pillows for offloading and maintains bedrest per order. Johnson is patent and draining. She is unable to participate in incentive spirometry due to not comprehending instructions for use. Brother and sister at bedside and supportive.
[2022-07-08] VITALS: O2SAT 91
[2022-07-08] MEDS: CEFAZOLIN 1 GM in 0.9 % SODIUM CHLORIDE Mini-bag 100 ML IVPB ×2 (02:31→10:17)
[2022-07-08 03:00] VITALS: BP 178/87; PULSE 66; RESP 18; TEMP 36.6; O2SAT 93
[2022-07-08] MEDS: LEVOTHYROXINE 50 MCG TABLET PO (06:49)
[2022-07-08] MEDS: ACETAMINOPHEN 325 MG TABLET 650 MG PO ×3 (06:52→19:57)
[2022-07-08 06:56] LABS: Hematocrit 37.5 % (33.0-51.0); Hemoglobin* 11.9 gm/dL (12.0-16.0); Mean Corpuscular HGB Conc 32 gm/dL (32-36); Mean Corpuscular Hemoglobin 31 pg (26-34); Mean Corpuscular Volume 99 fL (80-100); Platelet Count* 217 K/uL (140-440); White Blood Count* 14.91 K/uL (4.50-11.00)
[2022-07-08 07:00] VITALS: BP 180/85; PULSE 68; RESP 20; TEMP 36.8; O2SAT 92
[2022-07-08 07:01] LABS: Slide Review Reflex No
[2022-07-08 07:12] LABS: Potassium* 4.3 mmol/L (3.6-5.1); Sodium* 137 mmol/L (135-149)
[2022-07-08 07:15] LABS: Creatinine* 1.9 mg/dL (0.5-1.5); Est. Creatinine Clearance* 20.39; Estimated Glomerular Filt Rate 26 ml/min
[2022-07-08 07:16] LABS: Blood Urea Nitrogen* 36 mg/dL (7-30)
--- NOTE | 2022-07-08 07:40 | PC.NURSE ---
END OF SHIFT NOTE: PT PLEASANTLY DEMENTED. ALERT TO SELF. REPETITIVE STATEMENTS. PT DENIES PAIN. DENIES CP, SOB, N/V. SURGERY TO LEFT HIP 07/07; BANDAGE CDI. ACTIVE ICE TO LEFT HIP. REPOSITIONED FOR OFFLOADING. UNEVENTFUL NIGHT.
--- NOTE | 2022-07-08 08:30 | P.ORPN_ITS ---
Subjective Subjective Time Seen by Provider: 07:30 Date Seen: 07/08/22 Principal diagnosis: Status post left hip open reduction internal fixation Interval history: Michelle is comfortable this morning at rest in her bed. She will be discharging to a [place] [facility] facility when medically appropriate. Ortho Exam Narrative Exam Narrative: Alert. Patient is in no acute distress. Converses without labored breathing. Hearing is grossly intact. She is currently nonweightbearing. CMS intact left lower extremity. Bilateral calf soft and nontender. Dressing is clean, dry, and intact. Mild soft tissue edema about the left thigh. Const Vital Signs, click to edit/add: Vital Signs - 24 hr 07/07/22 08:39 07/07/22 13:14 07/07/22 13:27 Temperature 98.1 F 98.1 F Pulse Rate 67 67 Pulse Rate [Left Pulse Oximeter] 74 Respiratory Rate 20 20 20 Blood Pressure 77/43 L 86/52 L Blood Pressure [Left Arm] Pulse Oximetry 97 96 Oxygen Delivery Method Nasal Cannula Nasal Cannula Oxygen Flow Rate 3 3 07/07/22 13:20 07/07/22 13:25 07/07/22 13:30 Temperature 98.1 F 98.1 F 98.1 F Pulse Rate 45 L 52 L 60 Pulse Rate [Left Pulse Oximeter] Respiratory Rate 20 20 20 Blood Pressure 105/52 L 85/46 L 94/57 L Blood Pressure [Left Arm] Pulse Oximetry 98 97 98 Oxygen Delivery Method Nasal Cannula Nasal Cannula Nasal Cannula Oxygen Flow Rate 3 3 3 07/07/22 13:35 07/07/22 13:40 07/07/22 13:45 Temperature 98.1 F 98.1 F Pulse Rate 67 67 65 Pulse Rate [Left Pulse Oximeter] Respiratory Rate 20 20 20 Blood Pressure 100/59 L 83/26 L 141/72 H Blood Pressure [Left Arm] Pulse Oximetry 97 97 97 Oxygen Delivery Method Nasal Cannula Nasal Cannula Nasal Cannula Oxygen Flow Rate 3 3 3 07/07/22 13:50 07/07/22 13:55 07/07/22 14:00 Temperature 98.2 F Pulse Rate 69 65 69 Pulse Rate [Left Pulse Oximeter] Respiratory Rate 20 20 22 Blood Pressure 147/72 H 149/78 H 158/83 H Blood Pressure [Left Arm] Pulse Oximetry 97 97 97 Oxygen Delivery Method Nasal Cannula Nasal Cannula Oxygen Flow Rate 3 2 07/07/22 14:16 07/07/22 15:00 07/07/22 15:30 Temperature 97.6 F 97.9 F Pulse Rate 62 Pulse Rate [Left Pulse Oximeter] 75 61 Respiratory Rate 16 16 16 Blood Pressure Blood Pressure [Left Arm] 162/89 H 189/85 H 188/83 H Pulse Oximetry 96 92 Oxygen Delivery Method Nasal Cannula Nasal Cannula Nasal Cannula Oxygen Flow Rate 2 2 2.5 07/07/22 16:00 07/07/22 17:00 07/07/22 18:00 Temperature Pulse Rate Pulse Rate [Left Pulse Oximeter] 56 L 75 61 Respiratory Rate 16 16 16 Blood Pressure Blood Pressure [Left Arm] 189/76 H 160/71 H 158/80 H Pulse Oximetry 93 95 91 Oxygen Delivery Method Nasal Cannula Nasal Cannula Nasal Cannula Oxygen Flow Rate 2.5 2.5 2 07/07/22 19:00 07/07/22 23:25 07/07/22 23:25 Temperature 99.4 F 98.5 F Pulse Rate Pulse Rate [Left Pulse Oximeter] 54 L 48 L 48 L Respiratory Rate 16 16 18 Blood Pressure Blood Pressure [Left Arm] 154/66 H 167/86 H Pulse Oximetry 90 91 Oxygen Delivery Method Nasal Cannula Nasal Cannula Oxygen Flow Rate 2 2 07/08/22 00:00 07/08/22 03:00 Temperature 97.8 F Pulse Rate Pulse Rate [Left Pulse Oximeter] 66 Respiratory Rate 18 Blood Pressure Blood Pressure [Left Arm] 178/87 H Pulse Oximetry 91 93 Oxygen Delivery Method Nasal Cannula Nasal Cannula Oxygen Flow Rate 2 2 Documenting provider has reviewed patient's vital signs: yes Assessment and Plan Assessment and plan (1) Fracture of femoral neck, left: Status: Acute Assessment and Plan: Plan for discharge is today [place] [facility] if they meet discharge criteria. DVT prophylaxis includes aspirin 81 mg twice daily for 30 days, Vishnu stockings x1 month may remove for 1 hr per day Remove dressing 1 week. Observe wound and phone Orthopedics with any questions or concerns Use Ice on operative hip unrestricted. Return to clinic in 4-[address] Flores Minimize narcotic use. Wean off and discontinue soon as possible. Nonweightbearing left lower extremity. [place] and OT at [place] [facility] (2) Dementia: Status: Acute (3) Recurrent falls: Status: Acute (4) Chronic kidney disease: Problem details: Stage IV Status: Acute
[2022-07-08] MEDS: SENNOSIDES 1 TAB TABLET 2 TAB PO ×2 (09:25→21:13)
[2022-07-08] MEDS: SIMVASTATIN 20 MG TABLET PO (09:25)
[2022-07-08] MEDS: buPROPion XL 150 MG TABLET 300 MG PO (09:25)
[2022-07-08] MEDS: OXYCODONE 5 MG TABLET PO (09:25)
[2022-07-08] MEDS: BENZTROPINE MESYLATE 1 MG TABLET 0.5 MG PO (10:17)
[2022-07-08 11:00] VITALS: BP 180/89; PULSE 71; RESP 18; TEMP 36.6; O2SAT 94
[2022-07-08] MEDS: AMLODIPINE 5 MG TABLET PO (11:16)
[2022-07-08] MEDS: ASPIRIN 81 MG TABLET EC PO ×2 (11:17→21:12)
[2022-07-08] MEDS: lamoTRIgine 100 MG TABLET 200 MG PO ×2 (13:30→21:13)
[2022-07-08] MEDS: LACTATED RINGERS 1000 ML 1,000 ML 75 ML IV (13:48)
--- NOTE | 2022-07-08 13:53 | PC.SOCIAL ---
Discharge plan: Met with sister Facundo, regarding d/c plan. is requesting shelter placement and was interested in the [facility]. As there are no beds currently available at the [facility], is requesting placement at the [facility]. Called and spoke with Brigitte who confirmed they will have a bed available for pt on Monday and requested updated information be faxed and nurse to nurse be done Monday morning. Brigitte will arrange for their facility van to pick pt up at noon on Monday. river transportation worker to follow up as needed.
--- NOTE | 2022-07-08 14:00 | PM.IMPN1 ---
Progress Note: A&P Assessment and plan (1) Fracture of femoral neck, left: Status: Acute Assessment and Plan: Uncomplicated surgery. Anticipate uncomplicated recovery (2) Dementia: Status: Acute Assessment and Plan: No significant behavioral disturbance (3) Recurrent falls: Status: Acute Assessment and Plan: Continues to be fall risk (4) Chronic kidney disease: Problem details: Stage IV Status: Acute Assessment and Plan: Chronic and stable (5) Hypertension: Status: Acute Assessment and Plan: Chronic and not well controlled. Amlodipine dose has been increased. Plan Continue in hospital pending recovery from surgery, adequate pain control and adequate oral intake. Will need alf facility placement. Time Spent With Patient Total time spent: Total time spent today is 30 minutes, 20 minutes in coordination care discussing with patient and other providers postoperative management of medical problems, disposition and rehabilitation Subjective Date Seen: 07/08/22 Interval history: 81-year-old female seen in followup of ORIF of femoral neck fracture. Patient an uncomplicated surgery. She had percutaneous pinning of her fracture. Postoperatively she has generally done well. She reports adequate pain control. She has been eating and drinking is only small amounts today. Still has IV fluids going. No other concerns today. Exam Narrative: Exam Narrative: She is alert and appears in no distress. She is pleasant cooperative. Respirations are clear to auscultation. Cardiovascular: S1, S2, regular rate and rhythm. Abdomen: Bowel sounds active. Abdomen is soft without tenderness or mass. Left hip is notable for a Mepilex bandage which is clean and dry there is no significant bruising or redness or drainage on the dressing. Distally she has intact pulses and sensation. No edema. Const: Vital Signs, click to edit/add: Vital Signs - 24 hr 07/07/22 14:16 07/07/22 15:00 07/07/22 15:30 Temperature 97.6 F 97.9 F Pulse Rate 62 Pulse Rate [Left P ulse Oximeter] 75 61 Respiratory Rate 16 16 16 Blood Pressure [Le ft Arm] 162/89 H 189/85 H 188/83 H Pulse Oximetry 96 92 Oxygen Delivery Me thod Nasal Cannula Nasal Cannula Nasal Cannula Oxygen Flow Rate 2 2 2.5 07/07/22 16:00 07/07/22 17:00 07/07/22 18:00 Temperature Pulse Rate Pulse Rate [Left P ulse Oximeter] 56 L 75 61 Respiratory Rate 16 16 16 Blood Pressure [Le ft Arm] 189/76 H 160/71 H 158/80 H Pulse Oximetry 93 95 91 Oxygen Delivery Me thod Nasal Cannula Nasal Cannula Nasal Cannula Oxygen Flow Rate 2.5 2.5 2 07/07/22 19:00 07/07/22 23:25 07/07/22 23:25 Temperature 99.4 F 98.5 F Pulse Rate Pulse Rate [Left P ulse Oximeter] 54 L 48 L 48 L Respiratory Rate 16 16 18 Blood Pressure [Le ft Arm] 154/66 H 167/86 H Pulse Oximetry 90 91 Oxygen Delivery Me thod Nasal Cannula Nasal Cannula Oxygen Flow Rate 2 2 07/08/22 00:00 07/08/22 03:00 Temperature 97.8 F Pulse Rate Pulse Rate [Left P ulse Oximeter] 66 Respiratory Rate 18 Blood Pressure [Le ft Arm] 178/87 H Pulse Oximetry 91 93 Oxygen Delivery Me thod Nasal Cannula Nasal Cannula Oxygen Flow Rate 2 2 Documenting provider has reviewed patient's vital signs: yes Labs Labs: Laboratory Results - last 24 hr 07/08/22 07/08/22 06:15 06:15 WBC 14.91 H RBC 3.80 L Hgb 11.9 L Hct 37.5 MCV 99 MCH 31 MCHC 32 Plt Count 217 Sodium 137 Potassium 4.3 BUN 36 H Creatinine 1.9 H Estimated Creat Clear 20.39 Estimated GFR 26
[2022-07-08 15:00] VITALS: BP 179/86; PULSE 65; RESP 16; TEMP 37.1; O2SAT 91
--- NOTE | 2022-07-08 16:04 | PC.NURSE ---
Please see eMar for medications provided to this patient on day shift. Eval by ortho PA, PT, OT, Dr. Newsome and myself. Sister Facundo updated on pt's condition and progress. Pt stood at bedside, however she does not comprehend the non-wt bearing restriction for the next 4-6 weeks. Plan transfer via ceiling lift. Alarms engaged per fall prevention routine. Pt takes her pills one at a time in applesauce followed by a sip of water each time. Continue plan of care. Plan SNF placement. RN left a message for Mony at [facility] @ 12:08 pm regarding Michelle, no return call received from facility. Alex to DD. Pt needs encouragement to eat meals and take in PO fluids. Pt slept at intervals during the day. Repositioned Q 2 hours.
[2022-07-08 19:00] VITALS: BP 178/84; PULSE 69; RESP 16; TEMP 37.1; O2SAT 91
[2022-07-08] MEDS: LORazepam 0.5 MG TABLET PO (21:13)
[2022-07-09] VITALS (9 sets, daily range): BP systolic 169–194; BP diastolic 75–92; PULSE 62–75; RESP 16–18; TEMP 36.3–37.1; O2SAT 91–93
[2022-07-09] MEDS: ACETAMINOPHEN 325 MG TABLET 650 MG PO ×4 (00:30→20:54)
[2022-07-09] MEDS: OXYCODONE 5 MG TABLET PO ×4 (03:52→20:54)
--- NOTE | 2022-07-09 05:52 | PC.NURSE ---
[id number] Pt. restless until approx. 0230 PRN oxy administered and pt. rested comfortably remainder of shift. dressing to left hip c/d/I, active ice to site. Johnson patent and draining. Repo Q2hrs. Pt. tolerates fair d/t increase pain w/movement. Tolerated SCD's for approx. 1hr.
[2022-07-09] MEDS: LEVOTHYROXINE 50 MCG TABLET PO (06:35)
[2022-07-09] MEDS: BENZTROPINE MESYLATE 1 MG TABLET 0.5 MG PO (10:27)
[2022-07-09] MEDS: SENNOSIDES 1 TAB TABLET 2 TAB PO ×2 (10:28→20:55)
[2022-07-09] MEDS: buPROPion XL 150 MG TABLET 300 MG PO (10:28)
[2022-07-09] MEDS: AMLODIPINE 5 MG TABLET PO (10:31)
[2022-07-09] MEDS: SIMVASTATIN 20 MG TABLET PO (10:31)
[2022-07-09] MEDS: lamoTRIgine 100 MG TABLET 200 MG PO ×2 (10:32→21:02)
[2022-07-09] MEDS: ASPIRIN 81 MG TABLET EC PO ×2 (10:32→20:54)
--- NOTE | 2022-07-09 13:19 | PM.ORPN ---
Subjective Subjective Time Seen by Provider: 12:00 Date Seen: 07/09/22 Principal diagnosis: Status post left hip open reduction internal fixation Interval history: 81-year-old female seen in followup of ORIF of femoral neck fracture. Michelle is comfortable today. She has a good appetite and is currently eating. She has no concerns. She is waiting for care home placement for Monday. Ortho Exam Narrative Exam Narrative: The dressing on the left hip is clean, dry, and intact. There is minimal tissue edema about the left hip area. CMS intact left lower extremity. Const Vital Signs, click to edit/add: Vital Signs - 24 hr 07/08/22 15:00 07/08/22 19:00 07/09/22 00:30 Temperature 98.7 F 98.7 F 97.4 F L Pulse Rate [Left Dorsalis Pedis] 65 69 75 Respiratory Rate 16 16 16 Blood Pressure [Left Arm] 179/86 H 178/84 H 169/92 H Pulse Oximetry 91 91 91 Oxygen Delivery Method Nasal Cannula Nasal Cannula Nasal Cannula Oxygen Flow Rate 1 1 1 07/09/22 00:15 07/09/22 03:54 07/09/22 07:50 Temperature 98.3 F 98 F Pulse Rate [Left Dorsalis Pedis] 68 69 Respiratory Rate 16 16 18 Blood Pressure [Left Arm] 188/78 H 188/88 H Pulse Oximetry 91 92 93 Oxygen Delivery Method Nasal Cannula Nasal Cannula Nasal Cannula Oxygen Flow Rate 1 1 1 07/09/22 07:45 07/09/22 12:23 Temperature 97.8 F Pulse Rate [Left Dorsalis Pedis] 69 65 Respiratory Rate 18 18 Blood Pressure [Left Arm] 177/88 H Pulse Oximetry 93 Oxygen Delivery Method Room Air Oxygen Flow Rate 1 Assessment and Plan Assessment and plan (1) Fracture of femoral neck, left: Status: Acute Assessment and Plan: Plan for discharge is to care home on Monday. Patient is waiting on care home, therefore Orthopedics will not see Michelle tomorrow, Monday or Monday on [facility] unit. DVT prophylaxis includes aspirin 81 mg twice daily for 30 days, Vishnu stockings x1 month may remove for 1 hr per day Remove dressing 1 week. Dressing is waterproof. No baths, may shower if able. Observe wound and phone Orthopedics with any questions or concerns Use Ice on operative hip unrestricted. Return to clinic in 4-[address] Flores Minimize narcotic use. Wean off and discontinue soon as possible. Nonweightbearing left lower extremity for 4-6 weeks OT and PT at shelter facility (2) Dementia: Status: Acute (3) Recurrent falls: Status: Acute (4) Chronic kidney disease: Problem details: Stage IV Status: Acute (5) Hypertension: Status: Acute
--- NOTE | 2022-07-09 15:25 | PM.IMPN1 ---
Progress Note: A&P Assessment and plan (1) Fracture of femoral neck, left: Status: Acute Assessment and Plan: Stopped IV fluids. P.o. pain control. Aspirin b.i.d. for prophylaxis. Awaiting placement. (2) Dementia: Status: Acute Assessment and Plan: Stable (3) UTI (urinary tract infection): Status: Acute Assessment and Plan: Chart reveals 06/16 she had a urine at grew E coli. Unclear how this was treated or if checked again at admit. She did receive IV Ancef perioperatively. I will check a UA today. (4) Recurrent falls: Status: Acute Assessment and Plan: Known. (5) Chronic kidney disease: Problem details: Stage IV Status: Acute Assessment and Plan: Creatinine has improved and is stable. Subjective Date Seen: 07/09/22 Interval history: Daily Progress Note - Hospital Medicine Day #:4 Post Op Day #2 Left hip fracture ORIF IMPLANTS: Cannulated screws x3 ANESTHESIA: Spinal ESTIMATED BLOOD LOSS: 5 mL CC: Left hip fracture. Recurrent falls. Dementia. OVERNIGHT UPDATES FROM STAFF & MED, LAB, IMAGING UPDATES And continues to be comfortable, her pain is well managed. She is eating and drinking well. We moved her to a room with a ceiling lift today. She has been accepted by [facility] for Monday. Blood pressure is 177/88 on 5 mg of amlodipine, still on IV fluid Home meds for dementia were continued Oxycodone for pain Aspirin b.i.d. for DVT prophylaxis Postop hemoglobin 11.9 yesterday, 13.3 preoperatively Creatinine down to 1.9, 2.2 preoperatively UTI, urine culture grew E coli in May. Review of Systems: See subjective Cardiac: No new chest pain/pressure/palpitations. Respiratory: no new dyspnea. GI: No abdominal bloating Objective: Comfortably confused. Vitals: see above Lungs: Clear. Cardiac: S1S2. NEUROVASCULARLY INTACT TO BILATERAL LOWER EXTREMITIES. Disposition/Potential discharge - [facility] 07/11 Total time is 35 minutes with greater than 50% spent in counseling and coordination of care. Exam Const: Vital Signs, click to edit/add: Vital Signs - 24 hr 07/08/22 19:00 07/09/22 00:30 07/09/22 00:15 Temperature 98.7 F 97.4 F L Pulse Rate [Left D orsalis Pedis] 69 75 Respiratory Rate 16 16 16 Blood Pressure [Le ft Arm] 178/84 H 169/92 H Pulse Oximetry 91 91 91 Oxygen Delivery Me thod Nasal Cannula Nasal Cannula Nasal Cannula Oxygen Flow Rate 1 1 1 07/09/22 03:54 07/09/22 07:50 07/09/22 07:45 Temperature 98.3 F 98 F Pulse Rate [Left D orsalis Pedis] 68 69 69 Respiratory Rate 16 18 18 Blood Pressure [Le ft Arm] 188/78 H 188/88 H Pulse Oximetry 92 93 Oxygen Delivery Me thod Nasal Cannula Nasal Cannula Oxygen Flow Rate 1 1 07/09/22 12:23 Temperature 97.8 F Pulse Rate [Left D orsalis Pedis] 65 Respiratory Rate 18 Blood Pressure [Le ft Arm] 177/88 H Pulse Oximetry 93 Oxygen Delivery Me thod Room Air Oxygen Flow Rate 1
--- NOTE | 2022-07-09 17:33 | PC.NURSE ---
Critical value reported by lab - Potassium 2.5, Dr. Wilson notified.
[2022-07-09] MEDS: METOPROLOL SUCCINATE (XL) 25 MG TAB PO (17:50)
--- NOTE | 2022-07-09 20:16 | PC.NURSE ---
: Pt. moved to room 249 this shift. Pt. denied much discomfort in left hip unless moving or repositioning. Lung sounds clear throughout, but slightly diminished. Ceiling lift for transfers. Johnson patent, draining pale yellow urine. Pain rated 5/10, alleviated w/oxycodone. Family visits this shift. To commode x1 to attempt BM, unsuccessful. Pt. oriented x3, but more confused after evening meal. Sister notes this is common for time of day. Pt. took pills indep. and with assist using pudding. Prefers chocolate.
[2022-07-10] VITALS (7 sets, daily range): BP systolic 164–224; BP diastolic 66–108; PULSE 57–91; RESP 18–20; TEMP 36.6–37.4; O2SAT 90–93
[2022-07-10] MEDS: ACETAMINOPHEN 325 MG TABLET 650 MG PO ×4 (03:00→21:27)
--- NOTE | 2022-07-10 06:09 | PC.NURSE ---
[id number] Pt. rested comfortably all night. Pt. denies any pain. Johnson patent and draining pale yellow urine. dressing to Left hip is clean dry and intact. Active Ice to site. Repo throughout the night.
[2022-07-10] MEDS: LEVOTHYROXINE 50 MCG TABLET PO (06:53)
[2022-07-10] MEDS: AMLODIPINE 5 MG TABLET PO (07:53)
[2022-07-10] MEDS: OXYCODONE 5 MG TABLET PO (07:53)
[2022-07-10] MEDS: METOPROLOL SUCCINATE (XL) 25 MG TAB PO (07:53)
[2022-07-10] MEDS: SIMVASTATIN 20 MG TABLET PO (09:00)
[2022-07-10] MEDS: SENNOSIDES 1 TAB TABLET 2 TAB PO ×2 (09:00→21:27)
[2022-07-10] MEDS: ASPIRIN 81 MG TABLET EC PO ×2 (09:00→21:27)
[2022-07-10] MEDS: buPROPion XL 150 MG TABLET 300 MG PO (09:02)
[2022-07-10] MEDS: lamoTRIgine 100 MG TABLET 200 MG PO ×2 (09:04→21:28)
[2022-07-10] MEDS: BENZTROPINE MESYLATE 1 MG TABLET 0.5 MG PO (09:05)
--- NOTE | 2022-07-10 15:44 | P.IMPN_ITS ---
Progress Note: A&P Assessment and plan (1) Fracture of femoral neck, left: Status: Acute Assessment and Plan: Stable. Agree with DVT prophylaxis with aspirin b.i.d. transfer to [facility] tomorrow. (2) Dementia: Status: Acute Assessment and Plan: Stable. No delirium. (3) Recurrent falls: Status: Acute Assessment and Plan: [facility] care (4) Chronic kidney disease: Problem details: Stage IV Status: Acute Assessment and Plan: Follow-up chemistries tomorrow (5) Hypertension: Status: Acute Assessment and Plan: I have up titrated her amlodipine. I started her on metoprolol succinate. P.r.n. Lopressor IV as her systolics have sored over 200. Subjective Date Seen: 07/10/22 Interval history: Daily Progress Note - Hospital Medicine Day #:5 Post Op Day #3 Left hip fracture ORIF IMPLANTS: Cannulated screws x3 ANESTHESIA: Spinal ESTIMATED BLOOD LOSS: 5 mL CC: Left hip fracture. Recurrent falls. Dementia. OVERNIGHT UPDATES FROM STAFF & MED, LAB, IMAGING UPDATES she seemed brighter today, smilihng. continues to be comfortable, her pain is well managed. She is eating and drinking well. We moved her to a room with a ceiling lift today. She has been accepted by [facility] for Monday. Blood pressure has actually gone up despite intervention. Recent systolics are 213-224 over diastolics of 99-108. Home meds for dementia were continued Oxycodone for pain Aspirin b.i.d. for DVT prophylaxis CBC shows generally unchanged elevated white blood cell count Hemoglobin is stable, postoperatively. Chemistries have not been drawn since the . Micro UA was reassuring yesterday. UTI, urine culture grew E coli in May. Review of Systems: See subjective Cardiac: No new chest pain/pressure/palpitations. Respiratory: no new dyspnea. GI: No abdominal bloating Objective: Comfortably confused. Vitals: see above Lungs: Clear. Cardiac: S1S2. NEUROVASCULARLY INTACT TO BILATERAL LOWER EXTREMITIES. Disposition/Potential discharge - [facility] 07/11 Total time is 35 minutes with greater than 50% spent in counseling and coordination of care. Exam Const: Vital Signs, click to edit/add: Vital Signs - 24 hr 07/09/22 16:10 07/09/22 16:10 07/09/22 20:00 Temperature 98.7 F 98.7 F Pulse Rate [Left D orsalis Pedis] 70 70 63 Pulse Rate [Left P ulse Oximeter] Respiratory Rate 18 18 18 Blood Pressure [Le ft Arm] 185/75 H 194/84 H Pulse Oximetry 93 91 Oxygen Delivery Me thod Room Air Room Air Oxygen Flow Rate 07/09/22 23:00 07/10/22 00:00 07/10/22 00:00 Temperature 98.9 F Pulse Rate [Left D orsalis Pedis] 62 62 Pulse Rate [Left P ulse Oximeter] Respiratory Rate 18 18 Blood Pressure [Le ft Arm] 194/84 H Pulse Oximetry 90 90 Oxygen Delivery Me thod Room Air Room Air Oxygen Flow Rate 1 07/10/22 03:00 07/10/22 07:45 07/10/22 07:45 Temperature 98.9 F 98 F Pulse Rate [Left D orsalis Pedis] Pulse Rate [Left P ulse Oximeter] 67 91 62 Respiratory Rate 18 20 Blood Pressure [Le ft Arm] 186/89 H 213/99 H Pulse Oximetry 90 91 Oxygen Delivery Me thod Room Air Room Air Oxygen Flow Rate 1 07/10/22 11:00 Temperature 98.3 F Pulse Rate [Left D orsalis Pedis] Pulse Rate [Left P ulse Oximeter] 64 Respiratory Rate 18 Blood Pressure [Le ft Arm] 224/108 H Pulse Oximetry 93 Oxygen Delivery Me thod Room Air Oxygen Flow Rate Labs Labs: Laboratory Results - last 24 hr 07/09/22 15:33 Urine RBC 2-5 A Urine WBC 2-5 Ur Squamous Epith Cells None Urine Bacteria None
[2022-07-10] MEDS: METOPROLOL TARTRATE 1 MG/ML inj 5 MG IVP ×2 (16:28→21:29)
--- NOTE | 2022-07-10 19:39 | PC.NURSE ---
shift note: pt BP this a.m 213/99 with automatic BP. Recheck BP with manual 220/100. po lopressor, norvasc and oxycodone given. Dr. Raymundo notified. Pt asymptomatic. BP this afternoon 200's systolic. Pt asymptomatic. Dr. Renteria ordered IV lopressor. pt anxious and repetitive with questions. pt redirected with reassurance. drsg to lt thigh c/d/i. PP intact, pt has mild weakness to lt l/e due to recent surgery. guzmán in place and patent. pt tolerating diet. IV patent.
[2022-07-11] MEDS: LORazepam 0.5 MG TABLET PO ×2 (01:09→10:05)
[2022-07-11] MEDS: ACETAMINOPHEN 325 MG TABLET 650 MG PO ×2 (01:57→08:52)
[2022-07-11] MEDS: OXYCODONE 5 MG TABLET PO ×2 (01:57→08:56)
[2022-07-11 03:00] VITALS: BP 155/67; PULSE 50; RESP 26; TEMP 37; O2SAT 90
--- NOTE | 2022-07-11 05:40 | PC.NURSE ---
[id number] Pt extrememly restless during shift, did not fall asleep until approx 0500, at which time only slept for approx 45 min, prn medications did not help relieve he restlessness. easily redirectable, forgets very quickly. dressing C/D/I, pt does not keep ice on to site, does not keep foot scd's in place and does not keep pillow between knees.
[2022-07-11] MEDS: LEVOTHYROXINE 50 MCG TABLET PO (06:11)
[2022-07-11 07:04] LABS: Hematocrit 38.9 % (33.0-51.0); Hemoglobin* 12.5 gm/dL (12.0-16.0); Mean Corpuscular HGB Conc 32 gm/dL (32-36); Mean Corpuscular Hemoglobin 31 pg (26-34); Mean Corpuscular Volume 97 fL (80-100); Platelet Count* 264 K/uL (140-440); Red Blood Count 4.02 m/uL (4.00-5.20); White Blood Count* 10.39 K/uL (4.50-11.00)
[2022-07-11 07:15] VITALS: BP 168/68; PULSE 52; RESP 16; TEMP 37.2; O2SAT 92
[2022-07-11 07:23] LABS: Chloride* 107 mmol/L (96-114); Potassium* 4.1 mmol/L (3.6-5.1); Sodium* 139 mmol/L (135-149)
[2022-07-11 07:26] LABS: Blood Urea Nitrogen* 38 mg/dL (7-30); Carbon Dioxide* 27 mmol/L (20-32); Creatinine* 1.8 mg/dL (0.5-1.5); Est. Creatinine Clearance* 21.53; Estimated Glomerular Filt Rate 28 ml/min
[2022-07-11 07:27] LABS: Calcium* 9.5 mg/dL (8.4-10.6); Glucose* 123 mg/dL (60-115); Slide Review Reflex No
[2022-07-11 08:25] VITALS: BP 168/68; PULSE 52; RESP 16; TEMP 37.2
[2022-07-11] MEDS: SENNOSIDES 1 TAB TABLET 2 TAB PO (08:52)
[2022-07-11] MEDS: ASPIRIN 81 MG TABLET EC PO (08:52)
[2022-07-11] MEDS: AMLODIPINE 5 MG TABLET 10 MG PO (08:55)
[2022-07-11] MEDS: METOPROLOL SUCCINATE (XL) 25 MG TAB 50 MG PO (08:58)
[2022-07-11] MEDS: lamoTRIgine 100 MG TABLET 200 MG PO (08:58)
[2022-07-11] MEDS: BENZTROPINE MESYLATE 1 MG TABLET 0.5 MG PO (08:58)
[2022-07-11] MEDS: buPROPion XL 150 MG TABLET 300 MG PO (08:58)
[2022-07-11] MEDS: SODIUM CHLORIDE 0.9 % (FLUSH) 10 ML SYRINGE 5 ML IVF (09:04)
--- NOTE | 2022-07-11 09:46 | PC.NURSE ---
Pt evaluated by Dr. Wendy Raymundo and myself this morning. Pt unable to use pain scale, rubbing her hand over her surgical site. IV site #20 Gauge discontinued with catheter tip intact on right wrist. Pt dressed, incontinence pad changed and checked frequently. Up to recliner with 2 assist and ceiling lift. Pt remains non-wt bearing on her LLE for 4-6 weeks. Pt fell asleep during PT evaluation, she took her pills one at a time with chocolate pudding. Pt mumbling and crying that she needs to go to sleep. Yeimi Renteria RN stated Michelle was awake most of the night and was restless. Bed and chair alarms engaged per fall prevention protocol d/to pt's dementia and extreme fatigue. Rested aromatherapy patch placed and RN decreased stimuli in the room. Sleep sign placed on bedroom door. Report called to Mony from [facility] @ 0825 am, guzmán catheter to remain in place per Dr. Raymundo. Discharged to SNF completed per protocol. Pt will d/c at noon today with [facility] van transport arranged. Belongings packed up in preparation for discharge.
--- NOTE | 2022-07-11 10:13 | PC.SOCIAL ---
Pt. has been accepted to the [facility] and will transport there today. The [facility] van will arrive at noon. A message was left with pt.'s sister Facundo to update.
--- NOTE | 2022-07-11 12:02 | PC.NURSE ---
Pt's sister Facundo given d/c plan and belonging list signed for pt who has dementia. Pt transferred via w/c to [facility] with van jj at 11:53 am.
--- NOTE | 2022-07-11 13:21 | PM.DS1 ---
DS: Providers Provider Date Seen: 07/11/22 Date of admission: 07/06/22 11:26 Primary care physician: Rajni Lozano DO Admitting Clinician: Carlos Newsome MD Consults: 07/06/22 14:22 Consult to Occupational Therapy [CONS] Routine Comment: Reason(s) for OT Consult:: Difficulty Managing ADLs Any Restrictions?:: See Comment Comment: Patient had fall 07/06/22, unable to ambulate at this time, Ortho to consult. Consult to Physical Therapy [CONS] Routine Comment: Reason(s) for PT Consult:: Inability to Mobilize Any Restrictions?:: See Comment 07/07/22 13:05 Consult to Occupational Therapy [CONS] Routine Comment: Reason(s) for OT Consult:: Evaluate and Treat Any Restrictions?:: See Comment Comment: evaluate and treat Consult to Physical Therapy [CONS] Routine Comment: Reason(s) for PT Consult:: Evaluate and Treat Any Restrictions?:: See Comment Comment: Nonweightbearing left lower extremity. Bed to chair transfers only. Consult to Supervisor Functional Testing [CONS] Routine Comment: Reason for Consult:: Discharge Planning Needs Attending Physician on discharge: Carlos Newsome MD DS: Diagnosis Discharge Diagnosis (1) Fracture of femoral neck, left: Status: Acute (2) Dementia: Status: Acute (3) Recurrent falls: Status: Acute (4) Chronic kidney disease: Status: Acute Problem details: Stage IV (5) Hypertension: Status: Acute DS: Summary Hospital Course Hospital Course: HOSPITALIST DISCHARGE SUMMARY ATTENDING PHYSICIAN: Wendy Raymundo MD FINAL DIAGNOSIS: Impacted left femoral neck fracture, status post fall Status post ORIF, left hip Hypertension Dementia HOSPITAL FOLLOWUP ISSUES: 1. Orthopedic follow-up as directed 2. Hypertension, medication titration 3. Guzmán catheter present at discharge - discontinue this once settled at assisted facility REFERRALS WHILE ADMITTED: Orthopedics, OT and PT, social work REFERRALS AFTER DISCHARGE: None BRIEF HOSPITAL COURSE: 81-year-old Ms. Martinez fell and broke her left hip. She had a successful ORIF 07/07/21. No complications. Postoperatively she did well. Her chronic medical issues to include her hypertension and dementia were well managed. We did have to up titrate some of her hypertension meds secondary to elevated systolics. However she was asymptomatic with this. She was transferred to assisted on the morning of 07/11/2022. VITAL SIGN, MEDICATION, LAB/MICRO, IMAGING SUMMARY (full details available in account tabs or by records request) Blood pressure on discharge 168/68, pulse 52, temp afebrile, room air saturations 92% Upon discharge her CBC was unremarkable Chemistries revealed her chronic kidney disease but this was well managed with a creatinine of 1.8, electrolytes normal DISCHARGE MEDICATIONS: See Reconciled list REVIEW OF SYSTEMS No new chest pain or dyspnea Pain controlled No voiding difficulties Tolerating diet challenge PHYSICAL EXAM: CONSTITUTIONAL: Happily demented. VITAL SIGNS: see record. HEENT: Normocephalic, atraumatic. PERRL, EOMI, conjunctivae pink, no scleral icterus. Ears and nose externally normal. Pharynx normal. NECK: No JVD. No carotid bruit, no thyromegaly, no adenopathy. CHEST: Clear to auscultation bilaterally. HEART: S1 and S2 normal. Edema ABDOMEN: Soft, nontender. Normal bowel sounds. MUSCULOSKELETAL: No gross joint deformity or swelling. NEURO: Cranial nerves intact. Grossly intact. No asymmetric findings. SKIN: No rashes, petechiae, concerning changes PSYCHIATRIC: Mood euthymic. DISPOSITION: [facility] facility Time spent on discharge 37 minutes. Status at Discharge Functional status at discharge: bed bound Overall status at discharge: patient is not back to baseline Time Spent with Patient Time attestation: Total time spent providing and/or coordinating discharge services: Time spent: Greater than 30 minutes Exam Const: Vital Signs, click to edit/add: Vital Signs - 24 hr 07/10/22 15:00 07/10/22 15:00 07/10/22 19:00 Temperature 98.2 F 98.4 F Pulse Rate Pulse Rate [Left D orsalis Pedis] Pulse Rate [Left P ulse Oximeter] 66 68 57 L Respiratory Rate 18 18 18 Blood Pressure Blood Pressure [Le ft Arm] 178/89 H 164/66 H Pulse Oximetry 93 91 Oxygen Delivery Me thod Room Air Room Air Oxygen Flow Rate 07/10/22 22:51 07/10/22 22:51 07/10/22 22:51 Temperature 99.3 F Pulse Rate Pulse Rate [Left D orsalis Pedis] Pulse Rate [Left P ulse Oximeter] 57 L 61 Respiratory Rate 18 18 18 Blood Pressure Blood Pressure [Le ft Arm] 181/84 H Pulse Oximetry 92 91 Oxygen Delivery Me thod Nasal Cannula Room Air Oxygen Flow Rate 2 1 07/11/22 03:00 07/11/22 07:15 07/11/22 07:15 Temperature 98.6 F 98.9 F Pulse Rate Pulse Rate [Left D orsalis Pedis] 52 L Pulse Rate [Left P ulse Oximeter] 50 L 52 L Respiratory Rate 26 H 16 Blood Pressure Blood Pressure [Le ft Arm] 155/67 H 168/68 H Pulse Oximetry 90 92 92 Oxygen Delivery Me thod Room Air Room Air Room Air Oxygen Flow Rate 07/11/22 08:25 Temperature 98.9 F Pulse Rate 52 L Pulse Rate [Left D orsalis Pedis] Pulse Rate [Left P ulse Oximeter] Respiratory Rate 16 Blood Pressure 168/68 H Blood Pressure [Le ft Arm] Pulse Oximetry Oxygen Delivery Me thod Oxygen Flow Rate DS: Data Data Completed and Pending Labs on day of discharge: Labs from last 24 hours 07/11/22 07/11/22 06:19 06:19 WBC 10.39 RBC 4.02 Hgb 12.5 Hct 38.9 MCV 97 MCH 31 MCHC 32 Plt Count 264 Sodium 139 Potassium 4.1 Chloride 107 Carbon Dioxide 27 BUN 38 H Creatinine 1.8 H Estimated Creat Clear 21.53 Estimated GFR 28 Glucose 123 H Calcium 9.5 Discharge Plan Discharge Disposition: [facility] Date of Admission: 07/06/22 11:26 Attending Provider on Discharge: Wendy Raymundo Consulting Providers: Luis Armando Flores Primary Care Provider: Rajni Lozano Condition: Improved Anticipated Discharge Date/Time: 07/11/22 09:00 Discharge Medications: New acetaminophen 325 mg Tablet 650 mg PO Q6H PRNQty: 100 0RF aspirin 81 mg tablet,chewable 81 mg PO BID 30 Days Qty: 60 0RF sennosides [Senna Lax] 8.6 mg Tablet 2 tab PO BID PRNQty: 100 0RF oxycodone 5 mg Tablet 2.5 - 5 mg PO Q4-6H PRN (Reason: Pain) Qty: 40 0RF amlodipine 5 mg Tablet 10 mg PO DAILY PRNQty: 60 0RF aspirin 81 mg Tablet,Delayed Release (Dr/Ec) 81 mg PO BID Qty: 60 0RF bisacodyl 10 mg Suppository 10 mg IN DAILY PRN (Reason: Constipation) Qty: 50 0RF metoprolol succinate 25 mg Tablet Extended Release 24 Hr 50 mg PO DAILY Qty: 60 0RF Continued benztropine 0.5 mg tablet 0.5 mg PO DAILY lamotrigine 200 mg tablet 200 mg PO BID sennosides-docusate sodium [Stimulant Laxative Plus] 8.6-50 mg tablet 2 tab PO BID loxapine succinate 5 mg capsule 5 mg PO HS bupropion HCl [Wellbutrin XL] 300 mg tablet extended release 24 hr 300 mg PO DAILY levothyroxine 50 mcg tablet 50 mcg PO DAILY losartan 25 mg tablet 12.5 mg PO DAILY cinacalcet 30 mg tablet 30 mg PO DAILY simvastatin 20 mg tablet 20 mg PO DAILY Discontinued amlodipine 2.5 mg tablet 2.5 mg PO DAILY Discharge Orders: Discharge Order (Routine); Ordered 07/11/22 Ordered By: Wendy Raymundo Activity Restrictions/Additional Instructions: OT and PT at assisted facility. nonweight bearing left lower extremity 4-6 weeks. remove guzmán catheter once settled at SNF. rn long term care catherization increase risk for UTI. HTN - much higher in the hospital. discharge regimen: Metoprolol XL 50 daily, Norvasc 10mg, Losartan 12.5mg daily. May need adjustments. Activity Level: No Weight Bearing and Other Activity Detail: Nonweightbearing left lower extremity for 4-6 weeks. Keep dressing on for 1 week. Dressing is waterproof. May shower. Surgical glue covers the wound. Occupational therapy and physical therapy at assisted [facility]. Ice operative extremity without restriction. Wear compression stockings for 1 month post surgery. May remove for 1 hour per day. Do not drink alcohol while taking narcotic pain medication. Notify Orthopedics with any questions or concerns. ([phone]) Discharge Diet: Regular Follow Up Appointments: Luis Armando Flores MD [Staff Physician] - (1 month) Rajni Lozano DO [Primary Care Provider] - (4-6 weeks) Discharge Comment: return appt with Dr Flores in 4-6 weeks
== END 2022-07-11 11:53 | DRG 481 ==
LOC: ED 09:53 → MEDSURG 11:26
PROVIDERS: Family Medicine; Admitting Provider Orthopaedic Surgery; Emergency Provider Family Medicine; PCP Family Medicine; Visit Provider Family Medicine
PROC: 0QS704Z Reposition Left Upper Femur with Internal Fixation Device, Open Approach (ICD-10-PCS; principal; 2022-07-07 12:00)
DX: S72.002A Fracture of unspecified part of neck of left femur, initial encounter for closed fracture (principal); N39.0 Urinary tract infection, site not specified; N18.4 Chronic kidney disease, stage 4 (severe); W19.XXXA Unspecified fall, initial encounter; Y92.129 Unspecified place in nursing home as the place of occurrence of the external cause; B96.20 Unspecified Escherichia coli [E. coli] as the cause of diseases classified elsewhere; G30.9 Alzheimer's disease, unspecified; F02.80 Dementia in other diseases classified elsewhere, unspecified severity, without behavioral disturbance, psychotic disturbance, mood disturbance, and anxiety; I12.9 Hypertensive chronic kidney disease with stage 1 through stage 4 chronic kidney disease, or unspecified chronic kidney disease; E11.22 Type 2 diabetes mellitus with diabetic chronic kidney disease; E03.9 Hypothyroidism, unspecified; E78.5 Hyperlipidemia, unspecified; K21.9 Gastro-esophageal reflux disease without esophagitis; F31.9 Bipolar disorder, unspecified; Z85.528 Personal history of other malignant neoplasm of kidney
CPT/HCPCS: 01210; 36415; 64450; 70450; 71045; 72125; 73501; 73502; 76000; 76942; 80048; 80076; 81015; 82565; 83880; 84132; 84295; 84520; 85025; 85027; 85610; 85730; 87635; 93005; 94761; 97110; 97161; 97165; 97530; 97535; 99100; 99284; 99285; 99291; A9270; C1713; G0390; J0690; J1100; J2250; J2270; J2370; J2405; J2704; J3490; J7120

== ENCOUNTER 2022-08-08 10:49 | Outpatient (CLI) | payer OTHER, SELFPAY | END 2022-08-08 10:50 | disposition home or self-care (01) | LOC: AMB 08-22 10:59 | PROVIDERS: PCP Family Medicine; Visit Provider Family Medicine | DX: R41.82 Altered mental status, unspecified (principal) | CPT/HCPCS: A0425; A0427 ==

== ENCOUNTER 2022-08-08 11:24 | Emergency (ER) | payer OTHER, SELFPAY ==
[2022-08-08] VITALS (22 sets, daily range): BP systolic 157–198; BP diastolic 68–94; PULSE 36–60; RESP 14–18; TEMP 36.8; O2SAT 94–98
--- NOTE | 2022-08-08 11:55 | ED_ITS ---
History of Present Illness General Stated Complaint: Bradycardia Time Seen by Provider: 08/08/22 11:40 Related Data Home Medications Medication Instructions Recorded Confirmed benztropine 0.5 mg tablet 0.5 mg PO DAILY 06/16/22 08/03/22 bupropion HCl 300 mg 24 hr tablet, 300 mg PO DAILY 06/16/22 08/03/22 extended release (Wellbutrin XL) cinacalcet 30 mg tablet 30 mg PO DAILY 06/16/22 08/03/22 lamotrigine 200 mg tablet 200 mg PO BID 06/16/22 08/03/22 levothyroxine 50 mcg tablet 50 mcg PO DAILY 06/16/22 08/03/22 losartan 25 mg tablet 12.5 mg PO DAILY 06/16/22 08/03/22 loxapine succinate 5 mg capsule 5 mg PO HS 06/16/22 08/03/22 sennosides 8.6 mg-docusate sodium 2 tab PO BID 06/16/22 08/03/22 50 mg tablet (Stimulant Laxative Plus) simvastatin 20 mg tablet 20 mg PO DAILY 07/06/22 08/03/22 Previous Rx's Medication Instructions Recorded acetaminophen 325 mg tablet 650 mg PO Q6H PRN #100 tabs 07/08/22 aspirin 81 mg chewable tablet 81 mg PO BID 30 days #60 tabs 07/08/22 sennosides 8.6 mg tablet (Senna 2 tab PO BID PRN #100 tabs 07/08/22 Lax) oxycodone 5 mg tablet 2.5 - 5 mg PO Q4-6H PRN Pain #40 07/09/22 tabs amlodipine 5 mg tablet 10 mg PO DAILY PRN #60 tabs 07/11/22 aspirin 81 mg tablet,delayed 81 mg PO BID #60 tabs 07/11/22 release bisacodyl 10 mg rectal suppository 10 mg MI DAILY PRN Constipation 07/11/22 #50 ea metoprolol succinate 25 mg 50 mg PO DAILY #60 tabs 07/11/22 tablet,extended release 24 hr Allergies Allergy/AdvReac Type Severity Reaction Status Date / Time No Known Drug Allergies Allergy Verified 08/03/22 10:24 [facility] Medical History Acute hip pain Alzheimer's dementia without behavioral disturbance Bipolar disorder Chronic kidney disease Fall Fracture of femoral neck, left GERD (gastroesophageal reflux disease) Hyperlipidemia Hypertension Hypothyroidism Osteoporosis Pelvic fracture POLST (Physician Orders for Life-Sustaining Treatment) Primary hyperparathyroidism Recurrent falls Renal cell carcinoma of left kidney Tardive dyskinesia Type 2 diabetes mellitus Surgical History History of hysterectomy History of nephrectomy, left History of tonsillectomy S/P foot surgery, right (09/03/13) S/P ORIF (open reduction internal fixation) fracture (07/07/22) Family History Father High blood pressure Mother High blood pressure Social History Highest level of school completed/degree received: some college, no degree Smoking Status: Never smoker Do you use any of these nicotine containing products: None Second hand tobacco smoke exposure: No How often do you have a drink containing alcohol: never How often do you have six or more drinks on one occasion: Never AUDIT-C Alcohol total score: 0 Non-prescribed substance use: denies use Caffeine: No service: No Exam Const: Vital Signs, click to edit/add: Vital Signs - 24 hr 08/08/22 11:34 Temperature 98.2 F Pulse Rate [Left P ulse Oximeter] 44 L Respiratory Rate 18 Blood Pressure [Le ft Upper Arm] 161/68 H Pulse Oximetry 97 Oxygen Delivery Me thod Room Air Course Vital Signs Vital signs: Initial Vital Signs Temperature 98.2 F 08/08/22 11:34 Temperature Source Temporal Artery Scan 08/08/22 11:34 Pulse Rate 44 L 08/08/22 11:34 Respiratory Rate 18 08/08/22 11:34 Blood Pressure 161/68 H 08/08/22 11:34 Blood Pressure Mean 99 08/08/22 11:34 Blood Pressure Position Sitting 08/08/22 11:34 Pulse Oximetry 97 08/08/22 11:34 Oxygen Delivery Method 08/08/22 11:34 Vital Signs Temperature 98.2 F 08/08/22 11:34 Pulse Rate 44 L 08/08/22 11:34 Respiratory Rate 18 08/08/22 11:34 Blood Pressure 161/68 H 08/08/22 11:34 Pulse Oximetry 97 08/08/22 11:34 Oxygen Delivery Method 08/08/22 11:34 Temperature 98.2 F 08/08/22 11:34 Pulse Rate 44 L 08/08/22 11:34 Respiratory Rate 18 08/08/22 11:34 Blood Pressure 161/68 H 08/08/22 11:34 Pulse Oximetry 97 08/08/22 11:34 Oxygen Delivery Method 08/08/22 11:34 Discharge Plan Discharge Prescriptions: No Action benztropine 0.5 mg tablet 0.5 mg PO DAILY lamotrigine 200 mg tablet 200 mg PO BID sennosides-docusate sodium [Stimulant Laxative Plus] 8.6-50 mg tablet 2 tab PO BID loxapine succinate 5 mg capsule 5 mg PO HS bupropion HCl [Wellbutrin XL] 300 mg tablet extended release 24 hr 300 mg PO DAILY levothyroxine 50 mcg tablet 50 mcg PO DAILY losartan 25 mg tablet 12.5 mg PO DAILY cinacalcet 30 mg tablet 30 mg PO DAILY simvastatin 20 mg tablet 20 mg PO DAILY acetaminophen 325 mg Tablet 650 mg PO Q6H PRNQty: 100 0RF aspirin 81 mg tablet,chewable 81 mg PO BID 30 Days Qty: 60 0RF sennosides [Senna Lax] 8.6 mg Tablet 2 tab PO BID PRNQty: 100 0RF oxycodone 5 mg Tablet 2.5 - 5 mg PO Q4-6H PRN (Reason: Pain) Qty: 40 0RF amlodipine 5 mg Tablet 10 mg PO DAILY PRNQty: 60 0RF aspirin 81 mg Tablet,Delayed Release (Dr/Ec) 81 mg PO BID Qty: 60 0RF bisacodyl 10 mg Suppository 10 mg MI DAILY PRN (Reason: Constipation) Qty: 50 0RF metoprolol succinate 25 mg Tablet Extended Release 24 Hr 50 mg PO DAILY Qty: 60 0RF Follow Up/Referrals: Rajni Lozano DO [Primary Care Provider] -
--- NOTE | 2022-08-08 11:56 | ED_ITS ---
HPI - Arrhythmia/Palpitations General Chief Complaint: Arrhythmia/Palpitations Stated Complaint: Bradycardia Time Seen by Provider: 08/08/22 11:40 History of Present Illness HPI narrative: 81-year-old woman presenting to the emergency department via EMS after being seen for routine follow-up after ORIF of the hip in clinic noting her to be quite bradycardic in the 30s; this is apparently new. Had been noted by staff at her long-term care residence to be unusually sleepy this morning after her medications. Otherwise was in usual state of health. Struggles with dementia. She does not have any complaints of pain or feeling lightheaded but indicates her dementia with this questioning. She does think she has an irregular heartbeat she says. Is not feeling short of breath. Has not been taking oxycodone any longer per her sister's report. Sister accompanies her here today. Unknown whether not takes rate controlling meds although review later does reveal calcium channel lita and beta lita upon hospital discharge. No fevers noted. [facility] patient. ORIF was 1 month ago. Sister notes her frustration with this limiting her mobility and her aggravation with dementia. Medication list reviewed on paperwork here shows amlodipine 2.5 mg Benztropine Bupropion Sensipar Clonazepam as a p.r.n. Lamotrigine Levothyroxine Losartan 25 mg Loxapine Multivitamin folic acid Simvastatin Reviewing again medication list as provided by [facility] does include relevant medications of amlodipine 2.5 mg, losartan 12.5 mg and metoprolol succinate 50 mg Related Data Home Medications Medication Instructions Recorded Confirmed benztropine 0.5 mg tablet 0.5 mg PO DAILY 06/16/22 08/03/22 bupropion HCl 300 mg 24 hr tablet, 300 mg PO DAILY 06/16/22 08/03/22 extended release (Wellbutrin XL) cinacalcet 30 mg tablet 30 mg PO DAILY 06/16/22 08/03/22 lamotrigine 200 mg tablet 200 mg PO BID 06/16/22 08/03/22 levothyroxine 50 mcg tablet 50 mcg PO DAILY 06/16/22 08/03/22 losartan 25 mg tablet 12.5 mg PO DAILY 06/16/22 08/03/22 loxapine succinate 5 mg capsule 5 mg PO HS 06/16/22 08/03/22 sennosides 8.6 mg-docusate sodium 2 tab PO BID 06/16/22 08/03/22 50 mg tablet (Stimulant Laxative Plus) simvastatin 20 mg tablet 20 mg PO DAILY 07/06/22 08/03/22 Previous Rx's Medication Instructions Recorded acetaminophen 325 mg tablet 650 mg PO Q6H PRN #100 tabs 07/08/22 aspirin 81 mg chewable tablet 81 mg PO BID 30 days #60 tabs 07/08/22 sennosides 8.6 mg tablet (Senna 2 tab PO BID PRN #100 tabs 07/08/22 Lax) oxycodone 5 mg tablet 2.5 - 5 mg PO Q4-6H PRN Pain #40 07/09/22 tabs amlodipine 5 mg tablet 10 mg PO DAILY PRN #60 tabs 07/11/22 aspirin 81 mg tablet,delayed 81 mg PO BID #60 tabs 07/11/22 release bisacodyl 10 mg rectal suppository 10 mg ND DAILY PRN Constipation 07/11/22 #50 ea metoprolol succinate 25 mg 50 mg PO DAILY #60 tabs 07/11/22 tablet,extended release 24 hr Allergies Allergy/AdvReac Type Severity Reaction Status Date / Time No Known Drug Allergies Allergy Verified 08/03/22 10:24 [facility] Medical History Acute hip pain Alzheimer's dementia without behavioral disturbance Bipolar disorder Chronic kidney disease Fall Fracture of femoral neck, left GERD (gastroesophageal reflux disease) Hyperlipidemia Hypertension Hypothyroidism Osteoporosis Pelvic fracture POLST (Physician Orders for Life-Sustaining Treatment) Primary hyperparathyroidism Recurrent falls Renal cell carcinoma of left kidney Tardive dyskinesia Type 2 diabetes mellitus Surgical History History of hysterectomy History of nephrectomy, left History of tonsillectomy S/P foot surgery, right (09/03/13) S/P ORIF (open reduction internal fixation) fracture (07/07/22) Family History Father High blood pressure Mother High blood pressure Social History Highest level of school completed/degree received: some college, no degree Smoking Status: Never smoker Do you use any of these nicotine containing products: None Second hand tobacco smoke exposure: No How often do you have a drink containing alcohol: never How often do you have six or more drinks on one occasion: Never AUDIT-C Alcohol total score: 0 Non-prescribed substance use: denies use Caffeine: No service: No Exam Narrative: Exam Narrative: Appears tired but alerts easily conversation. Cranial nerves 2-12 look to be intact. Oropharynx with upper denture plate is a little dry. Head is atraumatic. Moving all extremities without notable difficulty. Skin is warm and dry. There is no significant inflammation in the area of her recent ORIF. Lungs are clear Cardiovascular is irregularly irregular and quite bradycardic. Abdomen is protuberant soft and nontender. Lower extremities are without edema. Const: Vital Signs, click to edit/add: Vital Signs - 24 hr 08/08/22 11:34 08/08/22 12:05 08/08/22 12:00 Temperature 98.2 F Pulse Rate Pulse Rate [Left P ulse Oximeter] 44 L 36 L Respiratory Rate 18 14 Blood Pressure Blood Pressure [Le ft Upper Arm] 161/68 H 159/69 H Pulse Oximetry 97 96 97 Oxygen Delivery Me thod Room Air 08/08/22 12:53 08/08/22 11:59 08/08/22 12:00 Temperature Pulse Rate 38 L 41 L Pulse Rate [Left P ulse Oximeter] 58 L Respiratory Rate Blood Pressure Blood Pressure [Le ft Upper Arm] Pulse Oximetry 98 98 Oxygen Delivery Me thod 08/08/22 12:02 08/08/22 12:10 08/08/22 12:20 Temperature Pulse Rate 37 L 36 L 39 L Pulse Rate [Left P ulse Oximeter] Respiratory Rate Blood Pressure 159/69 H Blood Pressure [Le ft Upper Arm] Pulse Oximetry 97 98 94 Oxygen Delivery Me thod 08/08/22 12:33 08/08/22 12:34 08/08/22 12:40 Temperature Pulse Rate 39 L 38 L 37 L Pulse Rate [Left P ulse Oximeter] Respiratory Rate Blood Pressure 157/70 H Blood Pressure [Le ft Upper Arm] Pulse Oximetry 96 95 98 Oxygen Delivery Me thod Documenting provider has reviewed patient's vital signs: yes Course Course Hospital Course: Placed on pads and monitored. Fluid bolus Reevaluation(s) Reevaluation #1: heart rate eventually persistently in mid-50s. and otherwise well, eating. Vital Signs Vital signs: Initial Vital Signs Temperature 98.2 F 08/08/22 11:34 Temperature Source Temporal Artery Scan 08/08/22 11:34 Pulse Rate 44 L 08/08/22 11:34 Respiratory Rate 18 08/08/22 11:34 Blood Pressure 161/68 H 08/08/22 11:34 Blood Pressure Mean 99 08/08/22 11:34 Blood Pressure Position Sitting 08/08/22 11:34 Pulse Oximetry 97 08/08/22 11:34 Oxygen Delivery Method 08/08/22 11:34 Vital Signs Temperature 98.2 F 08/08/22 11:34 Pulse Rate 44 L 08/08/22 11:34 Respiratory Rate 18 08/08/22 11:34 Blood Pressure 161/68 H 08/08/22 11:34 Pulse Oximetry 97 08/08/22 11:34 Oxygen Delivery Method 08/08/22 11:34 Temperature 98.2 F 08/08/22 11:34 Pulse Rate 54 L 08/08/22 14:03 Respiratory Rate 14 08/08/22 12:00 Blood Pressure 198/94 H 08/08/22 14:03 Pulse Oximetry 97 08/08/22 14:03 Oxygen Delivery Method 08/08/22 11:34 MDM - Arrhythmia/Palpitations MDM Narrative Medical decision making narrative: Anticipating admission for at a minimum medication washout. Discussed already briefly with our hospitalist. eventually stable and improved pulse rate. other vitals with elevated blood pressure. generally appears well. can likely return with sister to retirement where could have close monitoring and medical follow up. Medical Records Attestation: I reviewed the patient's medical records. Lab Data Attestation: I reviewed the patient's lab results. Lab results narrative: Chemistry analyzer unfortunately has gone down. Initial chemistries though look unremarkable other than a BUN of 41 creatinine of 2.3 --this is up a little bit from 1.8 mid June. Labs: Lab Results 08/08/22 08/08/22 08/08/22 Range/Units 12:27 12:27 12:27 WBC 10.27 (4.50-11.00) K/uL RBC 4.16 (4.00-5.20) m/uL Hgb 13.3 (12.0-16.0) gm/dL Hct 40.8 (33.0-51.0) % MCV 98 (80-100) fL MCH 32 (26-34) pg MCHC 33 (32-36) gm/dL RDW Coeff of Evelyn 13.8 (11.5-15.5) % Plt Count 306 (140-440) K/uL Neut % (Auto) 76.2 H (42.0-72.0) % Lymph % (Auto) 9.6 L (20-44) % Mccreary % (Auto) 11.8 H (0.0-11.0) % Eos % (Auto) 1.9 (0.0-7.0) % Baso % (Auto) 0.3 (0.0-3.0) % Neut # (Auto) 7.80 H (1.7-7.0) K/uL Lymph # (Auto) 1.00 (0.90-2.90) K/uL Mccreary # (Auto) 1.20 H (0.00-0.90) K/UL Eos # (Auto) 0.19 (0.00-0.50) K/uL Baso # (Auto) 0.03 (0.00-0.30) K/uL Abs Immat Gran (auto) 0.02 (0.00-0.30) K/uL VBG pH (7.32-7.43) VBG pCO2 (40-50) mmHG VBG pO2 (25-47) mmHG VBG HCO3 (21-28) mmol/L Sodium 137 (135-149) mmol/L Potassium 4.7 (3.6-5.1) mmol/L Chloride 105 (96-114) mmol/L Carbon Dioxide 21 (20-32) mmol/L BUN 49 H (7-30) mg/dL Creatinine 2.3 H (0.5-1.5) mg/dL Estimated GFR 21 ml/min Glucose 102 (60-115) mg/dL Venous Lactic Acid (Serial Order) Calcium 9.3 (8.4-10.6) mg/dL Magnesium 2.2 (1.5-2.6) mg/dL Total Bilirubin 0.4 (0.1-1.5) mg/dL AST 60 H (12-35) U/L ALT 28 (4-35) U/L Alkaline Phosphatase 139 (40-150) U/L Troponin I 0.04 (0.01-0.04) ng/mL C-Reactive Protein 0.7 (0.5-1.0) mg/dL NT-Pro-B Natriuret Pep 8660 H (0-450) PG/mL Total Protein 6.7 (6.0-8.3) g/dL Albumin 3.8 (3.3-5.0) g/dL SARS-CoV-2 (PCR) (Negative) POC Troponin I 0.04 (0.01-0.04) ng/ml 08/08/22 08/08/22 08/08/22 Range/Units 12:27 12:27 12:30 WBC (4.50-11.00) K/uL RBC (4.00-5.20) m/uL Hgb (12.0-16.0) gm/dL Hct (33.0-51.0) % MCV (80-100) fL MCH (26-34) pg MCHC (32-36) gm/dL RDW Coeff of Evelyn (11.5-15.5) % Plt Count (140-440) K/uL Neut % (Auto) (42.0-72.0) % Lymph % (Auto) (20-44) % Mccreary % (Auto) (0.0-11.0) % Eos % (Auto) (0.0-7.0) % Baso % (Auto) (0.0-3.0) % Neut # (Auto) (1.7-7.0) K/uL Lymph # (Auto) (0.90-2.90) K/uL Mccreary # (Auto) (0.00-0.90) K/UL Eos # (Auto) (0.00-0.50) K/uL Baso # (Auto) (0.00-0.30) K/uL Abs Immat Gran (auto) (0.00-0.30) K/uL VBG pH 7.429 (7.32-7.43) VBG pCO2 39 L (40-50) mmHG VBG pO2 46.9 (25-47) mmHG VBG HCO3 26 (21-28) mmol/L Sodium (135-149) mmol/L Potassium (3.6-5.1) mmol/L Chloride (96-114) mmol/L Carbon Dioxide (20-32) mmol/L BUN (7-30) mg/dL Creatinine (0.5-1.5) mg/dL Estimated GFR ml/min Glucose (60-115) mg/dL Venous Lactic Acid (Serial Order) Calcium (8.4-10.6) mg/dL Magnesium (1.5-2.6) mg/dL Total Bilirubin (0.1-1.5) mg/dL AST (12-35) U/L ALT (4-35) U/L Alkaline Phosphatase (40-150) U/L Troponin I (0.01-0.04) ng/mL C-Reactive Protein (0.5-1.0) mg/dL NT-Pro-B Natriuret Pep (0-450) PG/mL Total Protein (6.0-8.3) g/dL Albumin (3.3-5.0) g/dL SARS-CoV-2 (PCR) Negative SARS-CoV-2 (Negative) POC Troponin I (0.01-0.04) ng/ml ECG Data Attestation: I personally reviewed and interpreted this ECG as follows: (EKGs 1 reviewed from the clinic show a rate of 43 possibly junctional bradycardia with an PVC. EKGs here show bradycardia between 4143 LVH criteria.) Critical Care Time Critical Care Time Critical Care Time: Yes Attestation: The patient required my highest level preparedness to intervene emergently and I personally spent this critical care time directly and personally managing the patient. This critical care time included: Obtaining a history; Examining the patient; Pulse oximetry; Ordering and reviewing of studies; Arranging urgent treatment with development of a management plan; Evaluation of patients response to treatment; Frequent reassessment discussions with other providers. This critical care time was performed to assess and manage the high probability of imminent life-threatening deterioration that could result in multiorgan failure. It was exclusive of separate billable procedures and treating other patients and teaching time. Total Critical Care Time in Minutes: 60 Discharge Plan Discharge Clinical Impression: Bradycardia Patient Disposition: Home w/ Parent or Adult Condition: Improved Additional Instructions: Please stay well hydrated. Avoid abrupt transitions and definitely only ambulate with assistance as much as you can at this point. Do not take your metoprolol succinate or your amlodipine for now. Reassess what your pulses are and blood pressure is doing with regular checks by staff over the next 48 hours. This should be reported to your healthcare provider to decide whether not you can safely be restarted on medications or whether alternative is better. Be seen otherwise for persistent lightheadedness, increasing shortness of breath, passing out for sure, persistent pulse of 40 or less. Prescriptions: No Action benztropine 0.5 mg tablet 0.5 mg PO DAILY lamotrigine 200 mg tablet 200 mg PO BID sennosides-docusate sodium [Stimulant Laxative Plus] 8.6-50 mg tablet 2 tab PO BID loxapine succinate 5 mg capsule 5 mg PO HS bupropion HCl [Wellbutrin XL] 300 mg tablet extended release 24 hr 300 mg PO DAILY levothyroxine 50 mcg tablet 50 mcg PO DAILY losartan 25 mg tablet 12.5 mg PO DAILY cinacalcet 30 mg tablet 30 mg PO DAILY simvastatin 20 mg tablet 20 mg PO DAILY acetaminophen 325 mg Tablet 650 mg PO Q6H PRNQty: 100 0RF aspirin 81 mg tablet,chewable 81 mg PO BID 30 Days Qty: 60 0RF sennosides [Senna Lax] 8.6 mg Tablet 2 tab PO BID PRNQty: 100 0RF oxycodone 5 mg Tablet 2.5 - 5 mg PO Q4-6H PRN (Reason: Pain) Qty: 40 0RF amlodipine 5 mg Tablet 10 mg PO DAILY PRNQty: 60 0RF aspirin 81 mg Tablet,Delayed Release (Dr/Ec) 81 mg PO BID Qty: 60 0RF bisacodyl 10 mg Suppository 10 mg ND DAILY PRN (Reason: Constipation) Qty: 50 0RF metoprolol succinate 25 mg Tablet Extended Release 24 Hr 50 mg PO DAILY Qty: 60 0RF Follow Up/Referrals: Rajni Lozano DO [Staff Physician] - Stand Alone Forms: PushPage Info Instructions
[2022-08-08] MEDS: 0.9 % SODIUM CHLORIDE 1000 ml 1,000 ML 500 ML IV (12:11)
[2022-08-08 12:36] LABS: Lactate Sepsis w/Reflex* 1.2 mmol/L (0.5-1.9)
[2022-08-08 12:37] LABS: HCO3 VBG 26 mmol/L (21-28); PCO2 VBG 39 mmHG (40-50); PO2 VBG 46.9 mmHG (25-47); pH VBG 7.429 (7.32-7.43)
[2022-08-08 12:43] LABS: Basophils Absolute Auto 0.03 K/uL (0.00-0.30); Basophils Percent Auto 0.3 % (0.0-3.0); Eosinophils Absolute Auto 0.19 K/uL (0.00-0.50); Eosinophils Percent Auto 1.9 % (0.0-7.0); Hematocrit 40.8 % (33.0-51.0); Hemoglobin* 13.3 gm/dL (12.0-16.0); Immature Granulocytes Abs Auto 0.02 K/uL (0.00-0.30); Lymphocytes Percent Auto 9.6 % (20-44); Mean Corpuscular HGB Conc 33 gm/dL (32-36); Mean Corpuscular Hemoglobin 32 pg (26-34); Mean Corpuscular Volume 98 fL (80-100); Monocytes Percent Auto 11.8 % (0.0-11.0); Neutrophils Percent Auto 76.2 % (42.0-72.0); Platelet Count* 306 K/uL (140-440); RDW Coefficient of Variation % 13.8 % (11.5-15.5); Red Blood Count 4.16 m/uL (4.00-5.20); White Blood Count* 10.27 K/uL (4.50-11.00)
[2022-08-08 12:44] LABS: Slide Review Reflex No
[2022-08-08 12:46] LABS: Troponin, Point-of-Care* 0.04 ng/ml (0.01-0.04)
[2022-08-08 13:47] LABS: SARS PCR* Negative SARS-CoV-2 (Negative)
--- NOTE | 2022-08-08 14:00 | ED.NURSE ---
Called RN at [facility] and explained discharge plan including medication changes. Transport van arranged for [facility] [employer].
[2022-08-08 19:20] LABS: Albumin* 3.8 g/dL (3.3-5.0); Chloride* 105 mmol/L (96-114)
[2022-08-08 19:21] LABS: Potassium* 4.7 mmol/L (3.6-5.1); Sodium* 137 mmol/L (135-149)
[2022-08-08 19:23] LABS: Bilirubin Total* 0.4 mg/dL (0.1-1.5); Creatinine* 2.3 mg/dL (0.5-1.5); Estimated Glomerular Filt Rate 21 ml/min
[2022-08-08 19:24] LABS: Alanine Aminotransferase* 28 U/L (4-35); Alkaline Phosphatase* 139 U/L (40-150); Aspartate Amino Transferase* 60 U/L (12-35); Blood Urea Nitrogen* 49 mg/dL (7-30); Calcium* 9.3 mg/dL (8.4-10.6); Carbon Dioxide* 21 mmol/L (20-32); Glucose* 102 mg/dL (60-115); Total Protein* 6.7 g/dL (6.0-8.3)
[2022-08-08 19:25] LABS: Magnesium* 2.2 mg/dL (1.5-2.6)
[2022-08-08 19:27] LABS: C Reactive Protein* 0.7 mg/dL (0.5-1.0)
[2022-08-08 19:33] LABS: NT Pro B Type NatriureticPept* 8660 PG/mL (0-450)
[2022-08-08 20:23] LABS: Troponin I* 0.04 ng/mL (0.01-0.04)
== END 2022-08-08 15:06 | disposition home or self-care (01) ==
PROVIDERS: Emergency Provider Family Medicine; PCP Family Medicine
DX: R00.1 Bradycardia, unspecified (principal)
CPT/HCPCS: 36415; 80053; 81001; 82803; 82962; 83735; 83880; 84484; 85025; 86140; 87635; 93005; 94761; 96360; 96361; 99284; 99291; J7030

== ENCOUNTER 2022-09-12 10:46 | Outpatient (REF) | payer OTHER, SELFPAY ==
[2022-09-12 11:52] LABS: Hemoglobin* 12.6 gm/dL (12.0-16.0)
[2022-09-12 12:10] LABS: Calcium* 9.3 mg/dL (8.4-10.6); Glucose* 99 mg/dL (60-115); Phosphorus* 3.9 mg/dL (2.5-4.5)
[2022-09-12 12:14] LABS: Albumin* 4.1 g/dL (3.3-5.0); Blood Urea Nitrogen* 29 mg/dL (7-30); Carbon Dioxide* 24 mmol/L (20-32); Chloride* 103 mmol/L (96-114); Creatinine* 2.2 mg/dL (0.5-1.5); Estimated Glomerular Filt Rate 22 ml/min; Potassium* 4.7 mmol/L (3.6-5.1); Sodium* 138 mmol/L (135-149)
== END 2022-09-12 10:47 | disposition home or self-care (01) ==
LOC: NPINS 10:46
PROVIDERS: PCP Family Medicine; Visit Provider Family Medicine
DX: E03.9 Hypothyroidism, unspecified (principal); N18.4 Chronic kidney disease, stage 4 (severe); M81.0 Age-related osteoporosis without current pathological fracture
CPT/HCPCS: 80069; 82310; 83970; 85018

== ENCOUNTER 2022-09-27 12:55 | Outpatient (REF) | payer OTHER, SELFPAY ==
[2022-09-27 13:53] LABS: Chloride* 103 mmol/L (96-114); Sodium* 141 mmol/L (135-149)
[2022-09-27 13:54] LABS: Potassium* 5.2 mmol/L (3.6-5.1)
[2022-09-27 13:56] LABS: Creatinine* 2.4 mg/dL (0.5-1.5); Estimated Glomerular Filt Rate 20 ml/min
[2022-09-27 13:57] LABS: Blood Urea Nitrogen* 42 mg/dL (7-30); Calcium* 9.2 mg/dL (8.4-10.6); Carbon Dioxide* 28 mmol/L (20-32); Glucose* 70 mg/dL (60-115)
== END 2022-09-27 12:56 | disposition home or self-care (01) ==
LOC: NPINS 12:55
PROVIDERS: PCP Family Medicine; Visit Provider Family Medicine
DX: N18.4 Chronic kidney disease, stage 4 (severe) (principal); I10 Essential (primary) hypertension
CPT/HCPCS: 80048

== ENCOUNTER 2022-11-01 13:57 | Outpatient (REF) | payer OTHER, SELFPAY ==
[2022-11-01 14:22] LABS: Chloride* 100 mmol/L (96-114)
[2022-11-01 14:23] LABS: Potassium* 4.5 mmol/L (3.6-5.1); Sodium* 138 mmol/L (135-149)
[2022-11-01 14:25] LABS: Creatinine* 2.2 mg/dL (0.5-1.5); Estimated Glomerular Filt Rate 22 ml/min
[2022-11-01 14:26] LABS: Blood Urea Nitrogen* 28 mg/dL (7-30); Calcium* 9.1 mg/dL (8.4-10.6); Carbon Dioxide* 30 mmol/L (20-32); Glucose* 112 mg/dL (60-115)
== END 2022-11-01 13:58 | disposition home or self-care (01) ==
LOC: NPINS 13:57
PROVIDERS: PCP Family Medicine; Visit Provider Nurse Practitioner Gerontology
DX: I10 Essential (primary) hypertension (principal); N18.4 Chronic kidney disease, stage 4 (severe)
CPT/HCPCS: 80048

== ENCOUNTER 2022-11-30 14:54 | Outpatient (REF) | payer OTHER, SELFPAY ==
[2022-11-30 15:41] LABS: Chloride* 102 mmol/L (96-114)
[2022-11-30 15:42] LABS: Sodium* 139 mmol/L (135-149)
[2022-11-30 15:44] LABS: Carbon Dioxide* 28 mmol/L (20-32); Creatinine* 1.9 mg/dL (0.5-1.5); Estimated Glomerular Filt Rate 26 ml/min
[2022-11-30 15:45] LABS: Blood Urea Nitrogen* 37 mg/dL (7-30); Calcium* 9.1 mg/dL (8.4-10.6); Glucose* 91 mg/dL (60-115)
== END 2022-11-30 14:55 | disposition home or self-care (01) ==
LOC: NPINS 14:54
PROVIDERS: PCP Family Medicine; Visit Provider Internal Medicine Nephrology
DX: I10 Essential (primary) hypertension (principal); N18.4 Chronic kidney disease, stage 4 (severe)
CPT/HCPCS: 80048

== ENCOUNTER 2023-05-17 15:38 | Outpatient (REF) | payer OTHER, SELFPAY ==
[2023-05-17 16:14] LABS: Chloride* 100 mmol/L (96-114)
[2023-05-17 16:15] LABS: Potassium* 4.7 mmol/L (3.6-5.1); Sodium* 134 mmol/L (135-149)
[2023-05-17 16:17] LABS: Creatinine* 2.1 mg/dL (0.5-1.5); Estimated Glomerular Filt Rate 23 ml/min
[2023-05-17 16:18] LABS: Blood Urea Nitrogen* 37 mg/dL (7-30); Calcium* 9.8 mg/dL (8.4-10.6); Carbon Dioxide* 23 mmol/L (20-32); Glucose* 109 mg/dL (60-115)
== END 2023-05-17 15:39 | disposition home or self-care (01) ==
LOC: NPINS 15:38
PROVIDERS: PCP Family Medicine; Visit Provider Family Medicine
DX: U07.1 COVID-19 (principal)
CPT/HCPCS: 80048